=== PATIENT | female | born 1985 | race Caucasian/White ===

== ENCOUNTER 2020-04-22 08:14 | Outpatient (REF) | payer OTHER, SELFPAY ==
[2020-04-22 11:12] LABS: Free T4 (Free Thyroxine) 0.99 ng/dL (0.71-1.85); Thyroid Stimulating Hormone 1.77 uIU/mL (0.32-4.0)
== END 2020-04-22 08:15 | disposition home or self-care (01) ==
LOC: HO.10HDL 08:14
PROVIDERS: Visit Provider Internal Medicine Endocrinology, Diabetes & Metabolism
DX: E03.8 Other specified hypothyroidism (principal)
CPT/HCPCS: 84439; 84443

== ENCOUNTER → 2020-04-30 09:19 | Outpatient (BNVA) | payer OTHER, SELFPAY | PROVIDERS: PCP Internal Medicine; Referring Provider Internal Medicine; Visit Provider Internal Medicine Endocrinology, Diabetes & Metabolism | DX: Z76.89 Persons encountering health services in other specified circumstances (principal) ==

== ENCOUNTER 2020-11-13 15:04 | Outpatient (REF) | payer OTHER, SELFPAY ==
--- NOTE | ~2020-11-13 | MR_ITS ---
EXAMINATION: MR BRAIN WITHOUT AND WITH CONTRAST CLINICAL INFORMATION: 35-year-old undergoing follow-up exam for pituitary adenoma. COMPARISON: 05/31/2018 MRI. TECHNIQUE: Multiplanar, multisequence MRI/sella of the brain was obtained before and after the intravenous administration of 5 mL Gadavist. FINDINGS: Again noted is a somewhat enlarged anterior pituitary lobe measuring 13 mm greatest transverse dimension in the coronal plane stable in appearance with maximum sagittal dimensions of 8 x 10 mm grossly stable in appearance. Some heterogeneous enhancement is noted within the glandular tissue which is similar to the previous study and there is an upward convex margin of the gland which is unchanged. The pituitary infundibulum is midline and enhances normally stable in appearance. There is a normal posterior pituitary bright spot unchanged. Cavernous sinuses enhance normally. No definite mass effect on the optic chiasm or prechiasmatic optic nerves unchanged in appearance. DWI imaging demonstrates no restricted diffusion. Specifically, there is no evidence for recent or acute infarct. The brain is normal in morphology and signal intensity. No intracranial mass lesions, abnormal enhancement, space-occupying process or mass effect are identified throughout the remainder of the brain. The ventricular system and subarachnoid spaces are within normal limits without hydrocephalus stable in appearance. Signal voids are noted in the visualized major intracranial vessels. Nasal septal deviation to the left unchanged in appearance with minor ethmoid sinus mucosal thickening noted. MR/MR head/brain wo/w con IMPRESSION: 1. Stable appearance to the pituitary gland since the previous study with no significant interval change in slightly heterogeneous enhancement. No definite discrete mass lesion is visualized within the gland but is difficult to completely exclude due to heterogeneous enhancement as described above. 2. Remainder of the study is within normal limits.
== END 2020-11-13 15:05 | disposition home or self-care (01) ==
LOC: HO.MRI 15:04
PROVIDERS: Visit Provider Psychiatry & Neurology Neurology
DX: D35.2 Benign neoplasm of pituitary gland (principal)
CPT/HCPCS: 70553; A9585

== ENCOUNTER 2021-02-10 07:45 | Outpatient (REF) | payer OTHER, SELFPAY ==
[2021-02-10 11:25] LABS: MANUAL DIFF FLAG NO
[2021-02-10 11:43] LABS: Basophils Absolute Auto 0.1 X10*3/uL (0.0-0.2); Basophils Percent Auto 1.1 % (0-2); Eosinophils Absolute Auto 0.3 X10*3/uL (0.0-0.4); Eosinophils Percent Auto 4.4 % (0-4); Hematocrit 38.9 % (37-47); Hemoglobin 12.8 g/dl (12.0-16.0); Imm Gran Abs Auto 0.02 X10*3/uL (0.00-0.03); Imm Gran Pct Auto 0.4 % (0.0-0.4); Lymphocytes Absolute Auto 1.4 X10*3/uL (1.2-4.9); Lymphocytes Percent Auto 24.7 % (20-40); Mean Corpuscular HGB Conc 32.9 g/dl (31.0-35.0); Mean Corpuscular Hemoglobin 30.6 pg (27.0-33.0); Mean Corpuscular Volume 93.1 fL (80-98); Monocytes Absolute Auto 0.4 X10*3/uL (0.1-1.2); Monocytes Percent Auto 7.7 % (2-11); Neutrophils Absolute Auto 3.5 X10*3/uL (2.0-8.3); Neutrophils Percent Auto 61.7 % (45-73); Platelet Count 211 X10*3/uL (160-400); Red Blood Count 4.18 X10*6/uL (4.20-5.50); Red Cell Distribution Width 12.5 % (11.0-16.0); White Blood Count 5.6 X10*3/uL (4.8-10.8)
[2021-02-10 11:55] LABS: Alanine Aminotransferase 18 U/L (0-31); Aspartate Amino Transferase 17 U/L (5-31); Cholesterol 177 mg/dL; Glucose Fasting 88 mg/dL (60-99); HDL Cholesterol 66 mg/dL; LDL Cholesterol Calculated 101 mg/dl; Triglycerides 51 mg/dL
[2021-02-10 14:26] LABS: Estimated Average Glucose 94 mg/dL; Hemoglobin A1c % 4.9 %
== END 2021-02-10 07:46 | disposition home or self-care (01) ==
LOC: HO.HMGCLDS 07:45
PROVIDERS: PCP Internal Medicine; Visit Provider Internal Medicine
DX: Z00.01 Encounter for general adult medical examination with abnormal findings (principal); E03.8 Other specified hypothyroidism; E06.3 Autoimmune thyroiditis; E23.7 Disorder of pituitary gland, unspecified; E66.9 Obesity, unspecified
CPT/HCPCS: 36415; 80061; 82947; 83036; 84450; 84460; 85025

== ENCOUNTER 2021-12-02 15:30 | Outpatient (REF) | payer OTHER, SELFPAY ==
--- NOTE | ~2021-12-02 | MR_ITS ---
EXAMINATION: MR BRAIN WITHOUT AND WITH CONTRAST CLINICAL INFORMATION: 36-year-old undergoing followup for pituitary adenoma. COMPARISON: 11/13/2020 MRI. TECHNIQUE: Multiplanar, multisequence MRI of the brain/sella was obtained before and after the intravenous administration of 5 mL Gadavist. FINDINGS: Redemonstrated is a convex upward margin to the dome of the pituitary gland, measuring approximately 7.5 mm in maximum height compared to 8.5 mm on the previous study indicating a slight degree of flattening of the dome. On image 14 of series 9 of the current exam, there is a 4 mm subtle zone of mild hypoenhancement, which is better visualized on the current study and could reflect a small microadenoma. The infundibulum enhances normally and is unchanged in appearance. The cavernous sinuses are symmetric and enhance normally. Normal signal voids in the adjacent ICAs. The optic chiasm, optic tracts and prechiasmatic optic nerves are uncompromised. No focal reduced diffusion is seen to suggest acute or subacute cerebral ischemia. The remainder of the brain is normal in morphology and signal intensity. No mass lesions, abnormal brain parenchymal or leptomeningeal enhancement are seen throughout the remainder of the brain. The ventricular system and subarachnoid spaces are within normal limits without hydrocephalus. Normal signal voids are seen in the visualized major intracranial vessels. Nasal septal deviation to the left and minor mucosal thickening in the ethmoid complex is stable with a sahil bullosa in the right middle turbinate. Osseous marrow signal intensity appears within normal limits. MR/MR head/brain wo/w con IMPRESSION: Slightly diminished total gland height since the previous exam, but now with a slightly more well-defined zone of hypoenhancement measuring 4 mm in the anterior pituitary lobe on the left, which could reflect a small microadenoma. Follow up as per clinical indications.
[2021-12-02 17:06] LABS: Alanine Aminotransferase 15 U/L (0-31); Anion Gap 10 (12-20); Aspartate Amino Transferase 18 U/L (5-31); Blood Urea Nitrogen 22 mg/dL (9-16); Calcium 9.3 mg/dL (8.4-10.2); Carbon Dioxide 23 mmol/L (22-29); Chloride 107 mmol/L (96-108); Cholesterol 206 mg/dL; Estimated Glomerular Filt Rate > 60; Glucose Random 91 mg/dL (60-115); HDL Cholesterol 61 mg/dL; LDL Cholesterol Calculated 125 mg/dl; Potassium 4.3 mmol/L (3.3-5.1); Sodium 136 mmol/L (135-145); Triglycerides 104 mg/dL
[2021-12-02 17:27] LABS: Vitamin D 25-OH Total 23.7 ng/mL (>30)
== END 2021-12-02 15:31 | disposition home or self-care (01) ==
LOC: HO.MRI 15:30
PROVIDERS: PCP Internal Medicine; Visit Provider Psychiatry & Neurology Neurology
DX: D35.2 Benign neoplasm of pituitary gland (principal); G47.00 Insomnia, unspecified
CPT/HCPCS: 36415; 70553; 80048; 80061; 82306; 84146; 84450; 84460; A9585

== ENCOUNTER 2022-03-03 09:29 | Outpatient (REF) | payer OTHER, SELFPAY ==
[2022-03-03 10:34] LABS: MANUAL DIFF FLAG NO
[2022-03-03 10:53] LABS: Basophils Absolute Auto 0.1 X10*3/uL (0.0-0.2); Eosinophils Absolute Auto 0.2 X10*3/uL (0.0-0.4); Eosinophils Percent Auto 2.9 % (0-4); Hematocrit 38.4 % (37.0-47.0); Imm Gran Abs Auto 0.02 X10*3/uL (0.00-0.03); Imm Gran Pct Auto 0.3 % (0.0-0.4); Lymphocytes Absolute Auto 1.7 X10*3/uL (1.2-4.9); Lymphocytes Percent Auto 24.6 % (20-40); Mean Corpuscular HGB Conc 33.9 g/dl (31.0-35.0); Mean Corpuscular Hemoglobin 30.7 pg (27.0-33.0); Mean Corpuscular Volume 90.8 fL (80.0-98.0); Mean Platelet Volume 10.7 fL (9.4-12.3); Monocytes Absolute Auto 0.4 X10*3/uL (0.1-1.2); Monocytes Percent Auto 6.3 % (2-11); Neutrophils Absolute Auto 4.5 x10*3/uL (2.0-8.3); Neutrophils Percent Auto 64.9 % (45-73); Platelet Count 269 X10*3/uL (160-400); Red Blood Count 4.23 X10*6/uL (4.20-5.50); Red Cell Distribution Width 12.7 % (11.0-16.0)
[2022-03-03 11:28] LABS: Alanine Aminotransferase 20 U/L (0-31); Albumin Level 4.7 g/dL (3.5-5.0); Alkaline Phosphatase 55 U/L (39-117); Anion Gap 14 (12-20); Aspartate Amino Transferase 18 U/L (5-31); Bilirubin Total 0.5 mg/dL (0.0-1.0); Blood Urea Nitrogen 14 mg/dL (9-16); Calcium 9.3 mg/dL (8.4-10.2); Carbon Dioxide 23 mmol/L (22-29); Chloride 105 mmol/L (96-108); Estimated Glomerular Filt Rate > 60; Glucose Random 91 mg/dL (60-115); Potassium 4.5 mmol/L (3.3-5.1); Sodium 137 mmol/L (135-145); Total Protein 6.9 g/dL (6.5-8.0)
[2022-03-05 14:02] LABS: Immunoglobulin G Subclass 1 420 mg/dL (382-929); Immunoglobulin G Subclass 2 238 mg/dL (241-700); Immunoglobulin G Subclass 3 73 mg/dL (22-178); Immunoglobulin G Subclass 4 6.7 mg/dL (4-86); Immunoglobulin G Total 705 mg/dL (600-1640)
[2022-03-05 14:47] LABS: Immunoglobulin A 35 mg/dL (47-310); Immunoglobulin M 57 mg/dL (50-300)
[2022-03-05 18:42] LABS: Immunoglobulin E 14 kU/L (<OR=114)
[2022-03-08 23:02] LABS: Tetanus Antitoxiod Antibody 4.22 IU/mL
[2022-03-09 22:32] LABS: Mycoplasma Pneumoniae - IgG 3.53 (<=0.90); Mycoplasma Pneumoniae - IgM 62 U/mL (<770)
== END 2022-03-03 09:30 | disposition home or self-care (01) ==
LOC: HO.10HDL 09:29
PROVIDERS: Visit Provider Allergy & Immunology
DX: T78.40XA Allergy, unspecified, initial encounter (principal)
CPT/HCPCS: 36415; 80053; 82784; 82785; 83520; 85025; 86317; 86738; 86774

== ENCOUNTER 2022-05-13 09:00 | Outpatient (REF) | payer OTHER, SELFPAY ==
[2022-05-13 10:29] LABS: MANUAL DIFF FLAG NO
[2022-05-13 10:31] LABS: Basophils Absolute Auto 0.1 X10*3/uL (0.0-0.2); Basophils Percent Auto 1.4 % (0-2); Eosinophils Absolute Auto 0.2 X10*3/uL (0.0-0.4); Hematocrit 36.6 % (37.0-47.0); Hemoglobin 12.1 g/dl (12.0-16.0); Imm Gran Abs Auto 0.01 X10*3/uL (0.00-0.03); Imm Gran Pct Auto 0.2 % (0.0-0.4); Lymphocytes Absolute Auto 1.4 X10*3/uL (1.2-4.9); Lymphocytes Percent Auto 27.2 % (20-40); Mean Corpuscular HGB Conc 33.1 g/dl (31.0-35.0); Mean Corpuscular Hemoglobin 29.9 pg (27.0-33.0); Mean Corpuscular Volume 90.4 fL (80.0-98.0); Mean Platelet Volume 10.5 fL (9.4-12.3); Monocytes Absolute Auto 0.4 X10*3/uL (0.1-1.2); Monocytes Percent Auto 8.3 % (2-11); Neutrophils Percent Auto 59.9 % (45-73); Platelet Count 215 X10*3/uL (160-400); Red Blood Count 4.05 X10*6/uL (4.20-5.50); Red Cell Distribution Width 12.6 % (11.0-16.0)
[2022-05-13 10:42] LABS: Estimated Average Glucose 91 mg/dL; Hemoglobin A1c % 4.8 %
[2022-05-13 11:33] LABS: Alanine Aminotransferase 14 U/L (0-31); Albumin Level 4.3 g/dL (3.5-5.0); Alkaline Phosphatase 48 U/L (39-117); Anion Gap 9 (12-20); Aspartate Amino Transferase 14 U/L (5-31); Bilirubin Total 0.6 mg/dL (0.0-1.0); Blood Urea Nitrogen 16 mg/dL (9-16); Calcium 9.3 mg/dL (8.4-10.2); Carbon Dioxide 25 mmol/L (22-29); Chloride 104 mmol/L (96-108); Cholesterol 196 mg/dL; Estimated Glomerular Filt Rate > 60; Free T4 (Free Thyroxine) 1.04 ng/dL (0.71-1.85); Glucose Fasting 92 mg/dL (60-99); HDL Cholesterol 63 mg/dL; Insulin 7 uU/mL (2-29); Iron 63 mcg/dL (30-160); LDL Cholesterol Calculated 125 mg/dl; Percent Iron Saturation 21 % (15-50); Potassium 4.4 mmol/L (3.3-5.1); Sodium 134 mmol/L (135-145); Thyroid Stimulating Hormone 2.12 uIU/mL (0.32-4.0); Total Iron Binding Capacity 294 mcg/dL (228-428); Total Protein 6.3 g/dL (6.5-8.0); Triglycerides 44 mg/dL; Unsaturated Iron Binding 231 ug/dL; Vitamin D 25-OH Total 30.8 ng/mL (>30)
[2022-05-13 11:40] LABS: Folate 9.7 ng/mL (> or = 4.0); Vitamin B12 796 pg/mL (200-900)
[2022-05-14 23:44] LABS: Triiodothyronine T3 Free 3.3 pg/mL (2.3-4.2)
[2022-05-15 04:59] LABS: Thyroglobulin Antibodies <1 IU/mL (< or = 1); Thyroid Peroxidase Antibodies 353 IU/mL (<9)
[2022-05-15 14:08] LABS: Ceruloplasmin 31 mg/dL (18-53); Transferrin 252 mg/dL (188-341)
[2022-05-18 16:38] LABS: Iodine, Serum/Plasma 61 mcg/L (52-109)
[2022-05-19 12:37] LABS: Triiodothyronine T3 Reverse 14 ng/dL (8-25)
[2022-05-19 17:12] LABS: Zinc 83 mcg/dL (60-130)
[2022-05-20 06:13] LABS: Copper, serum 135 mcg/dL (70-175); Selenium, Serum 105 mcg/L (63-160)
== END 2022-05-13 09:01 | disposition home or self-care (01) ==
LOC: HO.10HDL 09:00
PROVIDERS: Visit Provider Family Medicine
DX: E03.9 Hypothyroidism, unspecified (principal); J82.83 Eosinophilic asthma; N94.3 Premenstrual tension syndrome; E66.9 Obesity, unspecified; R20.2 Paresthesia of skin
CPT/HCPCS: 36415; 80053; 80061; 82306; 82390; 82525; 82607; 82746; 83036; 83525; 83540; 83789; 84255; 84439; 84443; 84466; 84481; 84482; 84630; 85025; 86376; 86800

== ENCOUNTER 2022-10-13 08:32 | Outpatient (AMB) | payer OTHER, SELFPAY ==
--- NOTE | 2022-10-13 08:37 | MHC.PC.OV ---
Vital Signs 10/13/22 08:38 Height 5 ft 5 in BP 118/64 Blood Pressure Location Lt brachial Position Sitting Pulse 58 Pulse Source Pulse Oximeter Pulse Oximetry (%) 97 Oxygen Delivery Method Room Air Intake Visit Reasons: Annual PE Intake Note: Pe is here today for her PE Is last menstrual period known: Yes Last menstrual period: 09/25/22 Allergies No Known Allergies [No Known Allergies*] Allergy (Verified 10/13/22 09:02) Dust and Mold Allergy (Unknown, Uncoded 10/13/22 09:02) Unknown Medication List - Last Reconciled 10/13/22 by Pat Sevilla MD levothyroxine 50 mcg PO DAILY 90 days sertraline 50 mg PO QAM Tobacco use date assessed: 10/13/22 HPI Annual PE HPI Details 37-year-old lady here today for her physical exam. She has Gissell's thyroiditis with subsequent hypothyroidism currently stable controlled on current dose of levothyroxine at 50 mcg daily in the morning and was prescribed sertraline by her neurologist , Dr. Lucas, for anxiety disorder, who is also following her for her pituitary micro adenoma. She has been feeling well, with no complaints at present time. [facility] Medical History (Updated 02/16/23 @ 01:28 by Pat Sevilla MD) Anxiety disorder Fatigue H/O reactive hypoglycemia Gissell's thyroiditis History of vitamin D deficiency Hypothyroidism Intermittent palpitations Obesity (BMI 30.0-34.9) Pituitary lesion Urge incontinence Urinary urgency Vitamin D deficiency Surgical History No pertinent past surgical history Family History Father Substance use disorder Mother No problems noted. Paternal Grandmother Diabetes mellitus Pituitary microadenoma Mental health disorder Paternal Aunt Mental health disorder Social History Housing: Apartment Alcohol intake: never Patient Tobacco Use Status: Never used Tobacco e-Cigarette/Vaping Use: Never Used Second Hand Smoke Exposure: No service: No Current occupational status: employed Cognitive needs: No Hearing needs: No Vision needs: No Female Reproductive History Menstrual Date of last menstrual period: 09/25/22 Questionnaire PHQ-9 Over the last 2 weeks, how often have you been bothered by any of the following problems? 1. Little interest or pleasure in doing things: not at all 2. Feeling down, depressed, or hopeless: not at all 3. Trouble falling or staying asleep, or sleeping too much: not at all 4. Feeling tired or having little energy: not at all 5. Poor appetite or overeating: not at all 6. Feeling bad about yourself - or that you are a failure or have let yourself or your family down: not at all 7. Trouble concentrating on things, such as reading the newspaper or watching television: not at all 8. Moving or speaking so slowly that other people could have noticed. Or the opposite - being so fidgety or restless that you have been moving around a lot more than usual: not at all 9. Thoughts that you would be better off or of hurting yourself in some way: not at all Total score: 0 Depression Screening Interpretation: Negative 20804 - PHQ-9 Billing: Yes Source: Developed by Drs. Kike Gannon, Cecilia Ronquillo, Christian House and colleagues, with an educational yakelin from [employer]. Thrive Questionnaire Declines Thrive assessment: No Date Thrive assessed: 10/13/22 I am a: Patient What is your living situation today?: I have a steady place to live Within the past 12 months, did the food you bought not last and you didn't have the money to get more?: Never true Within the past 12 months, did you worry whether your food would run out before you got money to buy more?: Never true Do you have trouble paying for medicines?: No Do you have trouble getting transportation to medical appointments?: No Do you have trouble paying your heating and electricity bill?: No Do you have trouble taking care of your child, family member or friend?: No Do you have trouble with day-to-day activities such as bathing, preparing meals, shopping, managing finances, etc.?: No Are you currently unemployed and looking for a job?: No Are you interested in more education?: No AUDIT C Alcohol Use Questionnaire (AUDIT-C) 1. How often do you have a drink containing alcohol?: Monthly or less 2. How many drinks containing alcohol do you have on a typical day when you are drinking?: 1 or 2 3. How often do you have six or more drinks on one occasion?: Never Total Score: 1 ARY-7 AMB Questionnaire ARY-7 Date ARY - 7 assessed: 10/13/22 Feeling nervous, anxious, or on edge: 0 = Not at all Not being able to stop or control worryin = Not at all Worrying too much about different things: 0 = Not at all Trouble relaxin = Not at all Being so restless that it is hard to sit still: 0 = Not at all Becoming easily annoyed or irritable: 0 = Not at all Feeling afraid as if something awful might happen: 0 = Not at all Total ARY-7 score (0-4 normal; 5-9 mild; 10-14 moderate; 15-21 severe): 0 Source: Developed by Drs. Kike Gannon, Cecilia Ronquillo, [employer] and colleagues, with an educational yakelin from [employer]. ARY-7 Assessment Billing ARY-7 Assessment Tool: ARY-7 Assessment 21147 Review of Systems Const Denies body aches, Denies fever(s), Denies headache(s), Denies malaise and Denies weakness Eyes Reports no additional complaints ENT Denies dizziness, Denies headache(s), Denies nasal congestion, Denies nasal discharge and Denies sore throat Card Denies chest pain, Denies lightheadedness, Denies palpitations and Denies dyspnea Resp Denies chest congestion, Denies cough and Denies dyspnea GI Denies abdominal pain, Denies change in bowel habits and Denies heartburn Denies hematuria, Denies nipple discharge, Denies dysuria, Reports urinary incontinence, Denies urinary hesitancy, Reports urinary urgency and Denies vaginal discharge Musc Reports no additional complaints Skin/Breast Denies lesions, Denies nipple discharge and Denies rash Neuro Denies dizziness, Denies headache(s) and Denies weakness Psych Reports as per HPI Endo Denies polydipsia, Denies polyuria and Denies palpitations Homer/Lymph Reports no additional complaints Aller/Immun Reports no additional complaints Physical exam (Primary Care) Vital Signs: Last Vital Signs Pulse 58 10/13/22 08:38 BP 118/64 10/13/22 08:38 Pulse Ox 97 05/03/23 08:38 Oxygen Delivery Method Room Air 10/13/22 08:38 BMI Assessment/Plan discussion: High BMI High, discussed plan: lifestyle, weight reduction and dietary Tobacco/Smoking Status: Tobacco use Status Tobacco use date assessed 10/13/22 10/13/22 08:40 Patient Tobacco Use Status Never used Tobacco 10/13/22 08:40 e-Cigarette/Vaping Use Never Used 10/13/22 08:40 PHQ-9: PHQ-9 Score PHQ-9: Total score 0 10/13/22 09:42 Depression Screening Interpretation: Negative Thrive Assessment: Date of Thrive Assessment Date Thrive assessed 10/13/22 10/13/22 08:53 Const General: cooperative, comfortable and no acute distress Nutritional Appearance: obese Orientation/consciousness: patient oriented x3 Limitations: no limitations HENMT Head: Yes normocephalic and Yes atraumatic Ears: hearing grossly normal bilaterally, TM's normal bilaterally and EAC's normal General nose exam: Normal external nose present and No nasal discharge present Face and sinus: Yes face symmetric Mouth: Normal oral and palatal mucosa present, oropharynx normal and moist mucous membranes Teeth and gingiva: dentition normal and gingiva normal Throat: Yes posterior oropharynx normal Eyes General: appearance normal, both eyes and all related structures Neck Other: Supple, no lymphadenopathy, thyroid gland nonpalpable nontender to palpation Chest Chest palpation & inspection: normal inspection of the chest Breast/axilla palpation: normal palpation of the breasts Resp Effort & Inspection: normal respiratory effort and able to speak in complete sentences Auscultation: clear to auscultation bilaterally Cardio Other: S1-S2 present, bradycardic EKG done today showed sinus bradycardia with rate of 59 beats per minute with no acute ST-T changes seen GI Inspection: Yes obesity Palpation (GI): Soft to palpation, nontender, no guarding and no masses Auscultation: normal bowel sounds General: Yes no CVA tenderness and Yes deferred (Currently sees her own OBGYN) Back/Spine/Pelvis Back: no CVA tenderness and No back tenderness Skin General skin exam: no rashes or lesions noted Neuro General: patient oriented x3, gait normal, tone normal, moves all extremities, no focal motor deficits and CN's II-XI intact bilaterally Gait exam (Neuro): Normal gait present Extrem General: Yes full ROM, Yes no joint enlargement, Yes no pedal edema and Yes normal gait Psych Appearance: grossly normal and well kempt Mental Status: mental status grossly normal Speech and movement: Normal speech and movement present and Clear speech present Affect: normal affect Attitude: cooperative Thought process: Normal thought process present Thought content: Normal thought content present Assessment and Plan Assessment & Plan (1) Annual visit for general adult medical examination with abnormal findings: Code(s): Z00.01 - Encounter for general adult medical examination with abnormal findings Plan: Will check appropriate labs. Recommended dental visit every 6 months and regular eye exams, at least every 2 years. Take adequate calcium in diet and vitamin-D 3 at 2000 IU per cap once a day, in addition to weight-bearing exercises to help maintain good muscle tone and weight control. Instructed to do self-breast exam, and recommended to get yearly mammogram, starting at age 40. Reminded to get her yearly flu vaccine, and COVID booster. Goes to her own OBGYN for routine Pap and pelvic exam (2) Gissell's thyroiditis: Code(s): E06.3 - Autoimmune thyroiditis (3) Obesity (BMI 30.0-34.9): Code(s): E66.9 - Obesity, unspecified Plan: Discussed need to increase activity and wt reduction. Recommended focusing on improving your health instead of dieting. : Eat Mediterranean diet, limit foods high in fat, sugar, and calories, eat slowly, pay attention to portion sizes, plan your meals ahead of time, start regular physical activity 150 minutes of moderate intensity exercise or 90 minutes/week of vigorous exercise and increase water intake. (4) Hypothyroidism: Code(s): E03.9 - Hypothyroidism, unspecified Qualifiers: Hypothyroidism type: due to Gissell's thyroiditis Qualified Code(s): E03.8 - Other specified hypothyroidism; E06.3 - Autoimmune thyroiditis (5) Fatigue: Code(s): R53.83 - Other fatigue (6) History of vitamin D deficiency: Code(s): Z86.39 - Personal history of other endocrine, nutritional and metabolic disease (7) Urge incontinence: Code(s): N39.41 - Urge incontinence Plan: Urology consult or (8) Intermittent palpitations: Code(s): R00.2 - Palpitations Plan: EKG done today showed presence of sinus bradycardia with no acute ST-T changes seen (9) Pituitary lesion: Comment: Questionable micro adenoma, no intervention required per endocrine Code(s): E23.7 - Disorder of pituitary gland, unspecified Plan: Followed by Neurology, no intervention recommended (10) Anxiety disorder: Code(s): F41.9 - Anxiety disorder, unspecified Plan: Was started on sertraline by her neurologist at 50 mg daily, has been helping control anxiety attacks. Code(s): F41.9 - Anxiety disorder, unspecified Plan Ordered fast fasting labs to check for lipid panel, TSH and free T4, basic metabolic panel, thyroid peroxidase antibodies in a vitamin-D /B12/folic acid level, and CBC Orders: Orders Lipid Panel 10/13/22 E06.3 - Autoimmune thyroiditis, E66.9 - Obesity, unspecified, E03.9 - Hypothyroidism, unspecified, Z00.01 - Encounter for general adult medical examination with abnormal findings, R39.15 - Urgency of urination Thyroid Stimulating Hormone 10/13/22 E06.3 - Autoimmune thyroiditis, E66.9 - Obesity, unspecified, E03.9 - Hypothyroidism, unspecified, Z00.01 - Encounter for general adult medical examination with abnormal findings, R39.15 - Urgency of urination Free T4 (Free Thyroxine) 10/13/22 E03.9 - Hypothyroidism, unspecified, E06.3 - Autoimmune thyroiditis, E66.9 - Obesity, unspecified, Z00.01 - Encounter for general adult medical examination with abnormal findings, R39.15 - Urgency of urination Basic Metabolic Panel Fasting 10/13/22 E06.3 - Autoimmune thyroiditis, E66.9 - Obesity, unspecified, E03.9 - Hypothyroidism, unspecified, Z00.01 - Encounter for general adult medical examination with abnormal findings, R39.15 - Urgency of urination Thyroid Peroxidase Antibodies 10/13/22 E06.3 - Autoimmune thyroiditis, E66.9 - Obesity, unspecified, E03.9 - Hypothyroidism, unspecified, R53.83 - Other fatigue, Z86.39 - Personal history of other endocrine, nutritional and metabolic disease Vitamin D 25-OH Total 10/13/22 E06.3 - Autoimmune thyroiditis, E66.9 - Obesity, unspecified, E03.9 - Hypothyroidism, unspecified, R53.83 - Other fatigue, Z86.39 - Personal history of other endocrine, nutritional and metabolic disease Vitamin B12 and Folate 10/13/22 E06.3 - Autoimmune thyroiditis, E66.9 - Obesity, unspecified, E03.9 - Hypothyroidism, unspecified, R53.83 - Other fatigue, Z86.39 - Personal history of other endocrine, nutritional and metabolic disease Complete Blood Count Auto Diff 10/13/22 R53.83 - Other fatigue, R00.2 - Palpitations, E03.9 - Hypothyroidism, unspecified AMB EKG-In Office 10/13/22 R00.2 - Palpitations Referrals Urology Referral N39.41 - Urge incontinence Coding Level of Care Code Est Pt Prev Care 18-39y(24860) Diagnoses Annual visit for general adult medical examination with abnormal findings Z00.01 Gissell's thyroiditis E06.3 Obesity (BMI 30.0-34.9) E66.9 Hypothyroidism E03.8; E06.3 Hypothyroidism type: due to Gissell's thyroiditis Fatigue R53.83 History of vitamin D deficiency Z86.39 Urge incontinence N39.41 Intermittent palpitations R00.2 Pituitary lesion E23.7 Anxiety disorder F41.9 Additional Codes ARY-7 Assessment Billing - ARY-7 Assessment Tool: ARY-7 Assessment [id number] ([id number])
[2022-10-13 08:38] VITALS: BP 118/64; PULSE 58; O2SAT 97
== END 2022-10-13 12:52 | disposition home or self-care (01) ==
LOC: HO.HMGC 08:32
PROVIDERS: PCP Internal Medicine; Visit Provider Internal Medicine
DX: Z00.00 Encounter for general adult medical examination without abnormal findings (principal); E06.3 Autoimmune thyroiditis; E03.8 Other specified hypothyroidism; Z86.39 Personal history of other endocrine, nutritional and metabolic disease; E23.7 Disorder of pituitary gland, unspecified; F41.9 Anxiety disorder, unspecified; E66.9 Obesity, unspecified; R53.83 Other fatigue; N39.41 Urge incontinence; R00.2 Palpitations
CPT/HCPCS: 99395

== ENCOUNTER 2022-12-08 07:04 | Outpatient (REF) | payer OTHER, SELFPAY ==
[2022-12-08 11:16] LABS: MANUAL DIFF FLAG NO
[2022-12-08 11:20] LABS: Hematocrit 39.9 % (37.0-47.0); Hemoglobin 13.1 g/dl (12.0-16.0); Mean Corpuscular HGB Conc 32.8 g/dl (31.0-35.0); Mean Corpuscular Hemoglobin 30.3 pg (27.0-33.0); Mean Corpuscular Volume 92.1 fL (80.0-98.0); Red Blood Count 4.33 X10*6/uL (4.20-5.50); White Blood Count 5.3 X10*3/uL (4.8-10.8)
[2022-12-08 11:21] LABS: Basophils Absolute Auto 0.1 X10*3/uL (0.0-0.2); Basophils Percent Auto 1.3 % (0-2); Eosinophils Absolute Auto 0.2 X10*3/uL (0.0-0.4); Eosinophils Percent Auto 3.8 % (0-4); Imm Gran Abs Auto 0.01 X10*3/uL (0.00-0.03); Imm Gran Pct Auto 0.2 % (0.0-0.4); Lymphocytes Absolute Auto 1.5 X10*3/uL (1.2-4.9); Lymphocytes Percent Auto 28.1 % (20-40); Mean Platelet Volume 10.8 fL (9.4-12.3); Monocytes Absolute Auto 0.4 X10*3/uL (0.1-1.2); Monocytes Percent Auto 8.1 % (2-11); Neutrophils Absolute Auto 3.1 x10*3/uL (2.0-8.3); Neutrophils Percent Auto 58.5 % (45-73); Platelet Count 198 X10*3/uL (160-400); Red Cell Distribution Width 12.5 % (11.0-16.0)
[2022-12-08 11:47] LABS: Anion Gap 7 (12-20); Blood Urea Nitrogen 21 mg/dL (9-16); Calcium 9.5 mg/dL (8.4-10.2); Carbon Dioxide 22 mmol/L (22-29); Chloride 108 mmol/L (96-108); Cholesterol 180 mg/dL; Estimated Glomerular Filt Rate > 60; Glucose Fasting 98 mg/dL (60-99); HDL Cholesterol 51 mg/dL; LDL Cholesterol Calculated 113 mg/dl; Potassium 4.3 mmol/L (3.3-5.1); Sodium 133 mmol/L (135-145); Triglycerides 80 mg/dL
[2022-12-08 12:10] LABS: Free T4 (Free Thyroxine) 0.91 ng/dL (0.71-1.85); Thyroid Stimulating Hormone 4.58 uIU/mL (0.32-4.0); Vitamin D 25-OH Total 45.3 ng/mL (>30)
[2022-12-08 12:30] LABS: Folate 9.8 ng/mL (> or = 4.0); Vitamin B12 812 pg/mL (200-900)
[2022-12-10 11:08] LABS: Thyroid Peroxidase Antibodies 278 IU/mL (<9)
== END 2022-12-08 07:05 | disposition home or self-care (01) ==
LOC: HO.HMGCLDS 07:04
PROVIDERS: PCP Internal Medicine; Visit Provider Internal Medicine
DX: Z00.01 Encounter for general adult medical examination with abnormal findings (principal); E06.3 Autoimmune thyroiditis; E66.9 Obesity, unspecified; E03.9 Hypothyroidism, unspecified; R53.83 Other fatigue; R39.15 Urgency of urination; R00.2 Palpitations; E55.9 Vitamin D deficiency, unspecified
CPT/HCPCS: 36415; 80048; 80061; 82306; 82607; 82746; 84439; 84443; 85025; 86376

== ENCOUNTER 2023-05-04 13:37 | Outpatient (AMB) | payer OTHER, SELFPAY ==
--- NOTE | 2023-05-04 13:40 | MHC.OFFWIV ---
Intake Vital Signs 05/04/23 13:52 Height 5 ft 5 in BP 130/70 Blood Pressure Location Rt brachial Position Sitting Pulse 82 Pulse Source Pulse Oximeter Temp 96.2 F L Temp Source Temporal Artery Scan Pulse Oximetry (%) 98 Oxygen Delivery Method Room Air Intake Visit Reasons: EST/left foot pain (lobby) Intake Note: Pt is here c/o left foot pain Patient Tobacco Use Status: Never used Tobacco Allergies No Known Allergies [No Known Allergies*] Allergy (Verified 05/04/23 13:48) Dust and Mold Allergy (Unknown, Uncoded 05/04/23 13:48) Unknown HPI HPI Comments History of Present Illness Details 1400 38-year-old female presents with pain to top of left foot status post soccer injury she reports somebody ran into her, and since then has been having pain. Reports pain is worse with movement better at rest. Denies numbness or tingling. No fevers or chills. Reports multiple injuries that foot as a child. Physical examination benign other than slight tenderness to palpation to the top of L foot overlying the 3rd and 4th Metatarsals. Ambulating with steady gait. Concerns for contusion. Unlikely sprain, strain, fracture dislocation. No signs of neurovascular compromise or threat to limb plan x-ray. Will send naproxen for pain control. Educated patient on diagnosis and treatment plan, answered all question, patient verbalizes understanding. At this time patient will be discharged home, advised to return with new or worsening symptoms. Educated on worrisome signs and symptoms and when to return. At this time I feel comfortable discharge home. [facility] Medical History Anxiety disorder Intermittent palpitations Urge incontinence Fatigue Urinary urgency History of vitamin D deficiency Gissell's thyroiditis Obesity (BMI 30.0-34.9) H/O reactive hypoglycemia Pituitary lesion Vitamin D deficiency Hypothyroidism Surgical History No pertinent past surgical history Family History Father Substance use disorder Mother No problems noted. Paternal Grandmother Diabetes mellitus Pituitary microadenoma Mental health disorder Paternal Aunt Mental health disorder Housing: Apartment Alcohol intake: never Patient Tobacco Use Status: Never used Tobacco e-Cigarette/Vaping Use: Never Used Second Hand Smoke Exposure: No service: No Current occupational status: employed Cognitive needs: No Hearing needs: No Vision needs: No Review of Systems Const Details: Constitutional : No Weight loss, No Fever, No Chills, No Fatigue, No Malaise ENT/Mouth : No sore throat, No Rhinorrhea Eyes: No Eye Pain, No Swelling, No Redness Cardiovascular : No Chest Pain, No SOB, No Dyspnea on Exertion, No Orthopnea, No Edema, No Palpitations Respiratory : No Cough, No Sputum, No Wheezing Gastrointestinal : No Nausea, No Vomiting, No Diarrhea, No Constipation, No abdominal Pain, No Hematochezia, No Melena Genitourinary : No Dysuria, No Urinary Frequency, No Hematuria, Musculoskeletal : + joint pain, No Myalgias, + Joint Swelling Skin : No Skin Lesions, No rash Neuro : No Weakness, No Numbness, No Dizziness, No Headache Psych : No Anxiety/Panic, No Depression All other systems reviewed and are negative All systems reviewed & are unremarkable except as noted in HPI and below Physical Exam Vital Signs: Last Vital Signs Temp 96.2 F L 05/04/23 13:52 Pulse 82 05/04/23 13:52 BP 130/70 05/04/23 13:52 Pulse Ox 98 05/04/23 13:52 Oxygen Delivery Method Room Air 05/04/23 13:52 Vital signs stable Appearance: Alert.? Oriented X3.? No acute distress.? Head: Normocephalic, atraumatic, no step-offs or deformities Eyes: Pupils equal, round and reactive to light.? Neck: Normal inspection.? Neck supple.? CVS: Normal heart rate and rhythm.? Pulses normal.? Respiratory: No respiratory distress.? Breath sounds normal.? Abdomen: Soft and nontender.? Skin: Skin warm and dry.? Normal skin color.? Normal skin turgor.? Extremities: No lower extremity edema.? No calf ttp. 5/5 strength to bilateral upper and lower extremities +slight tenderness to palpation to the top of foot overlying the 3rd and 4th Metatarsals. Ambulating with steady gait. Neuro: Oriented X 3.? No motor deficit.? No sensory deficit. CN 2-12 intact Assessment & Plan Assessment & Plan (1) Left foot pain: Code(s): M79.672 - Pain in left foot Plan Take your medications as prescribed. If you were prescribed antibiotics today, it is important that you take your medication to their entirety, do not skip any doses, do not finish them early. Follow-up with your primary care provider this week. Return to the emergency department with new or worsening symptoms. Such as fevers, chills, chest pain, shortness of breath, nausea, vomiting, dizziness, headache, vision changes, lethargy In case of emergency call 911 Orders: Orders XR foot LT 2V Today M79.672 - Pain in left foot Referrals Orthopedics Referral M79.672 - Pain in left foot Medications: New naproxen 500 mg PO BID PRN 14 tabs 0RF pain Coding Level of Care Code Est Pt Level 3 (37781) Diagnoses Left foot pain M79.672
[2023-05-04 13:52] VITALS: BP 130/70; PULSE 82; TEMP 35.7; O2SAT 98
== END 2023-05-04 14:46 | disposition home or self-care (01) ==
PROVIDERS: PCP Internal Medicine; Visit Provider Physician Assistant
DX: M79.672 Pain in left foot (principal)
CPT/HCPCS: 99213

== ENCOUNTER 2023-05-04 13:56 | Outpatient (REF) | payer OTHER, SELFPAY ==
--- NOTE | ~2023-05-04 | XR_ITS ---
EXAMINATION: XR FOOT, LEFT CLINICAL INFORMATION: Left-sided flank pain COMPARISON: None available. TECHNIQUE: AP, lateral, and oblique views of the left foot. FINDINGS: There does appear to be mild lateral soft tissue swelling adjacent to the fifth MTP joint but no fracture, dislocation or destructive process. XR/XR foot LT 2V IMPRESSION: Lateral soft tissue swelling. No fracture seen.
== END 2023-05-04 13:57 | disposition home or self-care (01) ==
LOC: HO.HMGCX 13:56
PROVIDERS: PCP Internal Medicine; Visit Provider Physician Assistant
DX: M79.672 Pain in left foot (principal)
CPT/HCPCS: 73620

== ENCOUNTER 2023-10-28 08:03 | Outpatient (REF) | payer OTHER, SELFPAY ==
[2023-10-28 11:24] LABS: Free T4 (Free Thyroxine) 0.93 ng/dL (0.71-1.85); Thyroid Stimulating Hormone 3.01 uIU/mL (0.32-4.0)
[2023-10-31 13:49] LABS: Thyroid Peroxidase Antibodies 425 IU/mL (<9)
== END 2023-10-28 08:04 | disposition home or self-care (01) ==
LOC: HO.HMGCLDS 08:03
PROVIDERS: PCP Internal Medicine; Visit Provider Internal Medicine
DX: E03.8 Other specified hypothyroidism (principal); E06.3 Autoimmune thyroiditis
CPT/HCPCS: 36415; 84439; 84443; 86376

== ENCOUNTER 2024-01-03 13:37 | Outpatient (AMB) | payer OTHER, SELFPAY ==
--- NOTE | 2024-01-03 13:45 | MHC.PC.OV ---
Vital Signs 01/03/24 13:46 Height 5 ft 5 in Weight 190 lb BMI 31.6 BP 100/70 Blood Pressure Location Rt brachial Position Sitting Pulse 61 Pulse Source Pulse Oximeter Pulse Oximetry (%) 98 Oxygen Delivery Method Room Air Intake Visit Reasons: follow-up (medication) Intake Note: Pt is here today for medication f/u Allergies No Known Allergies [No Known Allergies*] Allergy (Verified 01/03/24 13:58) Dust and Mold Allergy (Unknown, Uncoded 01/03/24 13:58) Unknown Medication List - Last Reconciled 01/03/24 by Pat Sevilla MD levothyroxine 50 mcg PO DAILY 90 days sertraline 50 mg PO QAM Tobacco use date assessed: 01/03/24 Dental Screening Dental Screen Date: 01/03/24 Did you have a dental visit in the last 12 months?: Yes Did you have a dental problem in the last 6 months where you did not have access to dental care?: No Was dental information given to patient?: Patient has dentist HPI follow-up (medication) HPI Details 38-year-old lady with 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 She has been doing well on present medications, has no complaints at present time. Would like a referral however to a flame cutting supervisor for her routine skin cancer screening. [facility] Medical History Anxiety disorder Intermittent palpitations Urge incontinence Fatigue Urinary urgency History of vitamin D deficiency Gissell's thyroiditis Obesity (BMI 30.0-34.9) H/O reactive hypoglycemia Pituitary lesion Vitamin D deficiency Hypothyroidism Surgical History No pertinent past surgical history Family History Father Substance use disorder Mother No problems noted. Paternal Grandmother Diabetes mellitus Pituitary microadenoma Mental health disorder Paternal Aunt Mental health disorder Social History Housing: Apartment Alcohol intake: never Patient Tobacco Use Status: Never used Tobacco e-Cigarette/Vaping Use: Never Used Second Hand Smoke Exposure: No service: No Current occupational status: employed Cognitive needs: No Hearing needs: No Vision needs: No Questionnaire PHQ-9 Over the last 2 weeks, how often have you been bothered by any of the following problems? 1. Little interest or pleasure in doing things: not at all 2. Feeling down, depressed, or hopeless: not at all 3. Trouble falling or staying asleep, or sleeping too much: not at all 4. Feeling tired or having little energy: not at all 5. Poor appetite or overeating: not at all 6. Feeling bad about yourself - or that you are a failure or have let yourself or your family down: not at all 7. Trouble concentrating on things, such as reading the newspaper or watching television: not at all 8. Moving or speaking so slowly that other people could have noticed. Or the opposite - being so fidgety or restless that you have been moving around a lot more than usual: not at all 9. Thoughts that you would be better off or of hurting yourself in some way: not at all Total score: 0 Depression Screening Interpretation: Negative Depression Screening Done: Yes 24948 - PHQ-9 Billing: Yes Source: Developed by Drs. Kike Gannon, Cecilia Ronquillo, Christian House and colleagues, with an educational yakelin from [employer]. Thrive Questionnaire Date Thrive assessed: 01/03/24 I am a: Patient What is your living situation today?: I have a steady place to live Within the past 12 months, did the food you bought not last and you didn't have the money to get more?: Never true Within the past 12 months, did you worry whether your food would run out before you got money to buy more?: Never true Do you have trouble paying for medicines?: No Do you have trouble getting transportation to medical appointments?: No Do you have trouble paying your heating and electricity bill?: No Do you have trouble taking care of your child, family member or friend?: No Do you have trouble with day-to-day activities such as bathing, preparing meals, shopping, managing finances, etc.?: No Are you currently unemployed and looking for a job?: No Are you interested in more education?: No Please select the resources that you would like help with: Housing/[facility] Currently or been in a relationship where the following occur: No concerns reported THRIVE Score: 0 AUDIT C Alcohol Use Questionnaire (AUDIT-C) 1. How often do you have a drink containing alcohol?: Never Total Score: 0 ARY-7 AMB Questionnaire ARY-7 Date ARY - 7 assessed: 01/03/24 Feeling nervous, anxious, or on edge: 0 = Not at all Not being able to stop or control worryin = Not at all Worrying too much about different things: 0 = Not at all Trouble relaxin = Not at all Being so restless that it is hard to sit still: 0 = Not at all Becoming easily annoyed or irritable: 0 = Not at all Feeling afraid as if something awful might happen: 0 = Not at all Total ARY-7 score (0-4 normal; 5-9 mild; 10-14 moderate; 15-21 severe): 0 Source: Developed by Drs. Kike Gannon, Cecilia Ronquillo, Christian [facility] and colleagues, with an educational yakelin from [employer]. ARY-7 Assessment Billing ARY-7 Assessment Tool: ARY-7 Assessment 64167 Review of Systems Const Denies body aches, Denies headache(s) and Denies malaise Eyes Reports no additional complaints ENT Denies dizziness, Denies headache(s), Denies nasal congestion and Denies nasal discharge Card Denies chest pain, Denies lightheadedness, Denies palpitations and Denies dyspnea Resp Denies chest congestion, Denies cough and Denies dyspnea GI Denies abdominal pain, Denies change in bowel habits and Denies heartburn Denies dysuria, Denies urinary hesitancy and Reports urinary urgency Musc Reports no additional complaints Skin/Breast Denies lesions and Denies rash Neuro Denies dizziness and Denies headache(s) Psych Reports as per HPI Endo Denies polydipsia, Denies polyuria and Denies palpitations Homer/Lymph Reports no additional complaints Aller/Immun Reports no additional complaints Physical exam (Primary Care) Vital Signs: Last Vital Signs Pulse 61 01/03/24 13:46 BP 100/70 01/03/24 13:46 Pulse Ox 98 01/03/24 13:46 Oxygen Delivery Method Room Air 01/03/24 13:46 BMI result Body Mass Index 31.6 BMI Assessment/Plan discussion: High BMI High, discussed plan: lifestyle, weight reduction and dietary Tobacco/Smoking Status: Tobacco use Status Tobacco use date assessed 01/03/24 01/03/24 13:50 Patient Tobacco Use Status Never used Tobacco 01/03/24 13:50 e-Cigarette/Vaping Use Never Used 01/03/24 13:50 PHQ-9: PHQ-9 Score PHQ-9: Total score 0 01/03/24 14:11 Depression Screening Interpretation: Negative Thrive Assessment: Date of Thrive Assessment Date Thrive assessed 01/03/24 01/03/24 13:50 Currently or been in a relationship where the following occur: No concerns reported Const General: cooperative, comfortable and no acute distress Nutritional Appearance: obese Orientation/consciousness: patient oriented x3 HENMT Head: Yes normocephalic Ears: hearing grossly normal bilaterally, TM's normal bilaterally and EAC's normal General nose exam: Normal external nose present Face and sinus: Yes face symmetric Mouth: Normal oral and palatal mucosa present, oropharynx normal and moist mucous membranes Eyes General: appearance normal, both eyes and all related structures Neck Other: Supple, no lymphadenopathy, thyroid gland nonpalpable nontender to palpation Resp Effort & Inspection: normal respiratory effort and able to speak in complete sentences Auscultation: clear to auscultation bilaterally Cardio Other: S1-S2 present regular rate and rhythm GI Inspection: Yes obesity Palpation (GI): Soft to palpation, nontender, no guarding and no masses Auscultation: normal bowel sounds General: Yes deferred (Currently sees her own OBGYN) Back/Spine/Pelvis Back: No back tenderness Skin General skin exam: no rashes or lesions noted Neuro General: patient oriented x3, gait normal, tone normal, moves all extremities, no focal motor deficits and CN's II-XI intact bilaterally Gait exam (Neuro): Normal gait present Extrem General: Yes full ROM, Yes no joint enlargement, Yes no pedal edema and Yes normal gait Psych Appearance: grossly normal and well kempt Mental Status: mental status grossly normal Speech and movement: Normal speech and movement present and Clear speech present Affect: normal affect Attitude: cooperative Thought process: Normal thought process present Thought content: Normal thought content present Results Reviewed Results Reviewed: Laboratory Tests 10/28/23 08:19 TSH 3.01 Free T4 0.93 Assessment and Plan Assessment & Plan (1) Screening for Malignant Neoplasm of Skin: Code(s): Z12.83 - Encounter for screening for malignant neoplasm of skin Plan: Referred to dermatology for routine skin cancer screening (2) Anxiety disorder: Code(s): F41.9 - Anxiety disorder, unspecified Qualifiers: Anxiety disorder type: generalized anxiety disorder Qualified Code(s): F41.1 - Generalized anxiety disorder Plan: Continued on sertraline 50 mg daily (3) Gissell's thyroiditis: Code(s): E06.3 - Autoimmune thyroiditis Plan: Continued on levothyroxine 50 mcg once a day, latest thyroid levels are within normal limits (4) Hypothyroidism: Code(s): E03.9 - Hypothyroidism, unspecified Qualifiers: Hypothyroidism type: due to Gissell's thyroiditis Qualified Code(s): E03.8 - Other specified hypothyroidism; E06.3 - Autoimmune thyroiditis Plan: Continued on levothyroxine 50 mcg once a day, latest thyroid levels are within normal limits Orders: Referrals Dermatology Referral Z. - Encounter for screening for malignant neoplasm of skin Coding Level of Care Code Est Pt Level 4 (36023) Diagnoses Screening for Malignant Neoplasm of Skin Z12.83 Generalized anxiety disorder F41.1 Anxiety disorder type: generalized anxiety disorder Gissell's thyroiditis E06.3 Hypothyroidism due to Gissell's thyroiditis E03.8; E06.3 Hypothyroidism type: due to Gissell's thyroiditis Additional Codes ARY-7 Assessment Billing - ARY-7 Assessment Tool: ARY-7 Assessment 76279 ([id number])
[2024-01-03 13:46] VITALS: BP 100/70; PULSE 61; O2SAT 98; BMI 31.6
== END 2024-01-03 14:25 | disposition home or self-care (01) ==
PROVIDERS: PCP Internal Medicine; Visit Provider Internal Medicine
DX: E06.3 Autoimmune thyroiditis (principal); F41.1 Generalized anxiety disorder; Z12.83 Encounter for screening for malignant neoplasm of skin; E03.8 Other specified hypothyroidism
CPT/HCPCS: 99214

== ENCOUNTER 2024-04-17 09:55 | Outpatient (AMB) | payer OTHER, SELFPAY ==
[2024-04-17 10:01] VITALS: BP 104/64; PULSE 82; O2SAT 99; BMI 31.4
--- NOTE | 2024-04-17 10:01 | A.OFFPC_ITS ---
Vital Signs 04/17/24 10:01 Height 5 ft 5 in Weight 189 lb BMI 31.4 BP 104/64 Blood Pressure Location Rt brachial Position Sitting Pulse 82 Pulse Oximetry (%) 99 Oxygen Delivery Method Room Air Intake Visit Reasons: ANNUAL - see comments Intake Note: Pt is here today for her PE: Last papsmear 01/24/19 Is last menstrual period known: Yes Last menstrual period: 03/27/24 Allergies No Known Allergies [No Known Allergies*] Allergy (Verified 04/17/24 10:38) Dust and Mold Allergy (Unknown, Uncoded 04/17/24 10:38) Unknown Medication List - Last Reconciled 04/17/24 by Pat Sevilla MD levothyroxine 50 mcg PO DAILY 90 days sertraline 50 mg PO QAM Tobacco use date assessed: 04/17/24 Dental Screening Dental Screen Date: 04/17/24 Did you have a dental visit in the last 12 months?: Yes Did you have a dental problem in the last 6 months where you did not have access to dental care?: No Was dental information given to patient?: Patient has dentist HPI ANNUAL - see comments HPI Details 39-year-old lady here today for physical exam. She has Gissell's thyroiditis with subsequent hypothyroidism, currently on levothyroxine 50 mcg taken once a day. She takes sertraline 50 mg once a day for anxiety disorder, which has been helping. She is up-to-date with her cervical cancer screening with last Pap smear done in 2019 in [facility]. Was referred [place] [facility] earlier this year, but canceled, advised to schedule appointment Has had COVID vaccines in the past does not want to get booster any other vaccination Complains an ill-defined lump on anterior neck, nontender present for the last several weeks denies any problems swallowing . She has also been feeling several lumps on both breasts, nontender with no abnormal nipple discharge [facility] Medical History (Updated 04/17/24 @ 11:03 by Pat Sevilla MD) 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 Paternal Grandmother Diabetes mellitus Pituitary microadenoma Mental health disorder Paternal Aunt Mental health disorder Social History Housing: Apartment Alcohol intake: never Patient Tobacco Use Status: Never used Tobacco e-Cigarette/Vaping Use: Never Used Second Hand Smoke Exposure: No service: No Current occupational status: employed Cognitive needs: No Hearing needs: No Vision needs: No Female Reproductive History Menstrual Date of last menstrual period: 03/27/24 Questionnaire Thrive Questionnaire Date Thrive assessed: 01/03/24 I am a: Patient What is your living situation today?: I have a steady place to live Within the past 12 months, did the food you bought not last and you didn't have the money to get more?: Never true Within the past 12 months, did you worry whether your food would run out before you got money to buy more?: Never true Do you have trouble paying for medicines?: No Do you have trouble getting transportation to medical appointments?: No Do you have trouble paying your heating and electricity bill?: No Do you have trouble taking care of your child, family member or friend?: No Do you have trouble with day-to-day activities such as bathing, preparing meals, shopping, managing finances, etc.?: No Are you currently unemployed and looking for a job?: No Are you interested in more education?: No Please select the resources that you would like help with: None Currently or been in a relationship where the following occur: No concerns reported THRIVE Score: 0 AUDIT C Alcohol Use Questionnaire (AUDIT-C) 1. How often do you have a drink containing alcohol?: Never Total Score: 0 ARY-7 AMB Questionnaire ARY-7 Date ARY - 7 assessed: 01/03/24 Source: Developed by Drs. Kike Gannon, Cecilia Ronquillo, Christian House and colleagues, with an educational yakelin from [employer]. Review of Systems Const Denies body aches, Denies headache(s) and Denies malaise Eyes Reports no additional complaints ENT Denies dizziness, Denies headache(s), Denies nasal congestion and Denies nasal discharge Card Denies chest pain, Denies lightheadedness, Denies palpitations and Denies dyspnea Resp Denies chest congestion, Denies cough and Denies dyspnea GI Denies abdominal pain, Denies change in bowel habits and Denies heartburn Denies dysuria, Denies urinary hesitancy and Reports urinary urgency Musc Reports no additional complaints Skin/Breast Reports as per HPI, Denies lesions and Denies rash Neuro Denies dizziness and Denies headache(s) Psych Reports no additional complaints Endo Denies polydipsia, Denies polyuria and Denies palpitations Homer/Lymph Reports no additional complaints Aller/Immun Reports no additional complaints Physical exam (Primary Care) Vital Signs: Last Vital Signs Pulse 82 04/17/24 10:01 BP 104/64 04/17/24 10:01 Pulse Ox 99 04/17/24 10:01 Oxygen Delivery Method Room Air 04/17/24 10:01 BMI result Body Mass Index 31.4 Tobacco/Smoking Status: Tobacco use Status Tobacco use date assessed 04/17/24 04/17/24 10:02 Patient Tobacco Use Status Never used Tobacco 04/17/24 10:02 e-Cigarette/Vaping Use Never Used 04/17/24 10:02 Thrive Assessment: Date of Thrive Assessment Date Thrive assessed 01/03/24 04/17/24 10:02 Currently or been in a relationship where the following occur: No concerns reported Advance Care Planning discussion: Completed/Scanned Date of discussion: 04/17/24 Who was present: Patient Forms completed: Health Care Proxy Time spent: 16-45 minutes Actual minutes spent: 3 Const Orientation/consciousness: patient oriented x3 [facility] Head: Yes normocephalic Ears: external ears normal, TM's normal bilaterally and EAC's normal General nose exam: Normal external nose present Face and sinus: Yes face symmetric Mouth: Normal oral and palatal mucosa present, tongue normal, oropharynx normal and moist mucous membranes Eyes General: appearance normal, both eyes and all related structures Neck Other: Ill-defined lump on left anterior cervical triangle of neck, nontender to palpate Neck: Yes full ROM, Yes no lymphadenopathy and Yes supple Thyroid: Thyroid normal (Nonpalpable) Chest Breast/axilla inspection: normal inspection of the breasts and normal inspection of the axillae Breast/axilla palpation: abnormal palpation of the breast (Mass at 10 and 11 o'clock position of right breast& 07:00 left breast) Resp Auscultation: clear to auscultation bilaterally Cardio Rate: regular rate Rhythm: regular rhythm Heart sounds: S1 normal heart sound present and S2 normal heart sound present GI Palpation (GI): Soft to palpation, nontender, no guarding and no masses Auscultation: normal bowel sounds General: Yes no CVA tenderness and Yes deferred (Has been referred to [facility] for her routine Pap and pelvic exam) Back/Spine/Pelvis Back: no CVA tenderness and No back tenderness Skin General skin exam: no rashes or lesions noted Neuro General: patient oriented x3, gait normal, moves all extremities, Normal light touch and pain sensation and no focal motor deficits Cranial nerves: Yes CN's II-XII intact bilaterally Cognition (Neuro): normal cognition Gait exam (Neuro): Normal gait present Extrem General: Yes normal to inspection, Yes full ROM, Yes no joint enlargement, Yes no clubbing, cyanosis or edema, Yes no calf tenderness and Yes normal gait Psych Appearance: grossly normal and well kempt Mental Status: mental status grossly normal Speech and movement: Normal speech and movement present Affect: normal affect Thought process: Normal thought process present Thought content: Normal thought content present Coding Level of Care Code Est Pt Prev Care 18-39y(61557) Diagnoses Annual visit for general adult medical examination with abnormal findings Z00.01 Localized swelling, mass and lump, neck R22.1 Mass of upper outer quadrant of right breast N63.11 Breast mass location: upper outer quadrant Mass of lower inner quadrant of left breast N63.24 Breast mass location: lower inner quadrant 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 History of vitamin D deficiency Z86.39 Generalized anxiety disorder F41.1 Anxiety disorder type: generalized anxiety disorder Advanced directives, counseling/discussion Z71.89 Additional Codes Vital Signs *Quality* - Advance Care Planning discussion: Completed/Scanned ([id number]) Vital Signs *Quality* - Time spent: 16-45 minutes ([id number]) Assessment & Plan Assessment & Plan (1) Annual visit for general adult medical examination with abnormal findings: Code(s): Z00.01 - Encounter for general adult medical examination with abnormal findings Plan: Will check appropriate labs. Recommended dental visit every 6 months and regular eye exams, at least every 2 years. Take adequate calcium in diet and vitamin-D 3 at 2000 IU per cap once a day, in addition to weight-bearing exercises to help maintain good muscle tone and weight control. Palpable mass palpated on both breasts, referred for breast ultrasound bilateral, she has been referred to [facility] for her routine Pap and pelvic exam earlier this year, has been canceled several times, patient advised to call them and schedule an appointment. Has had 2 COVID vaccines but does not want to get boosters and does not want to get any other vaccination. (2) Localized swelling, mass and lump, neck: Code(s): R22.1 - Localized swelling, mass and lump, neck Plan: Ultrasound soft tissue head and neck ordered (3) Mass of right breast: Code(s): N63.10 - Unspecified lump in the right breast, unspecified quadrant Category: Medical Qualifiers: Breast mass location: upper outer quadrant Qualified Code(s): N63.11 - Unspecified lump in the right breast, upper outer quadrant Plan: Ill-defined palpable mass at 11 and 10 o'clock position right breast, ordered diagnostic breast ultrasound (4) Mass of left breast: Code(s): N63.20 - Unspecified lump in the left breast, unspecified quadrant Category: Medical Qualifiers: Breast mass location: lower inner quadrant Qualified Code(s): N63.24 - Unspecified lump in the left breast, lower inner quadrant Plan: Ill-defined mass palpated at 07:00 o'clock position of left breas, left breast ultrasound ordered (5) Hypothyroidism due to Gissell's thyroiditis: Code(s): E06.3 - Autoimmune thyroiditis Category: Medical Plan: Per patient request, referral ordered to see endocrine clinic at [facility], Dr. Daniel Paniagua. Last thyroid levels were within normal limits. Continued on current dose of levothyroxine 50 mcg daily. Ordered TSH, free T4 and thyroid peroxidase antibody (6) History of vitamin D deficiency: Code(s): Z86.39 - Personal history of other endocrine, nutritional and metabolic disease Category: Medical Plan: Will check vitamin-D level (7) Anxiety disorder: Code(s): F41.9 - Anxiety disorder, unspecified Category: Medical Qualifiers: Anxiety disorder type: generalized anxiety disorder Qualified Code(s): F41.1 - Generalized anxiety disorder Plan: Stable and controlled on sertraline 50 mg taken once a day in a.m. (8) Advanced directives, counseling/discussion: Code(s): Z71.89 - Other specified counseling Plan: Initiated the conversation about Advanced Directives. Advanced Directives help patients prepare for current and future decisions about their medical treatment and place of care. Discussed with patient that it is a process where a patients current condition and prognosis are reviewed, their wishes for information regarding their illness are elicited, and likely medical dilemmas are presented and options discussed. Healthcare proxy form completed today. The form can be amended as needed, reviewed yearly and make changes as needed Orders: Orders US breast RT complete 04/17/24 N63.10 - Unspecified lump in the right breast, unspecified quadrant US breast LT complete 04/17/24 N63.20 - Unspecified lump in the left breast, unspecified quadrant Thyroid Peroxidase Antibodies 04/17/24 E06.3 - Autoimmune thyroiditis, F41.1 - Generalized anxiety disorder, Z13.1 - Encounter for screening for diabetes mellitus, Z13.220 - Encounter for screening for lipoid disorders Free T4 (Free Thyroxine) 04/17/24 E06.3 - Autoimmune thyroiditis, F41.1 - Generalized anxiety disorder, Z13.1 - Encounter for screening for diabetes mellitus, Z13.220 - Encounter for screening for lipoid disorders Aspartate Amino Transferase 04/17/24 E06.3 - Autoimmune thyroiditis, F41.1 - Generalized anxiety disorder, Z13.1 - Encounter for screening for diabetes mellitus, Z13.220 - Encounter for screening for lipoid disorders Vitamin D 25-OH Total 04/17/24 E06.3 - Autoimmune thyroiditis, F41.1 - Generalized anxiety disorder, Z13.1 - Encounter for screening for diabetes mellitus, Z13.220 - Encounter for screening for lipoid disorders US soft tiss head and/or neck 04/17/24 R22.1 - Localized swelling, mass and lump, neck Thyroid Stimulating Hormone 04/17/24 E06.3 - Autoimmune thyroiditis, F41.1 - Generalized anxiety disorder, Z13.1 - Encounter for screening for diabetes me llitus, Z13.220 - Encounter for screening for lipoid disorders Alanine Aminotransferase 04/17/24 E06.3 - Autoimmune thyroiditis, F41.1 - Generalized anxiety disorder, Z13.1 - Encounter for screening for diabetes mellitus, Z13.220 - Encounter for screening for lipoid disorders Basic Metabolic Panel Fasting 04/17/24 E06.3 - Autoimmune thyroiditis, F41.1 - Generalized anxiety disorder, Z13.1 - Encounter for screening for diabetes mellitus, Z13.220 - Encounter for screening for lipoid disorders Lipid Panel 04/17/24 E06.3 - Autoimmune thyroiditis, F41.1 - Generalized anxiety disorder, Z13.1 - Encounter for screening for diabetes mellitus, Z13.220 - Encounter for screening for lipoid disorders Referrals Endocrinology Referral E06.3 - Autoimmune thyroiditis
== END 2024-04-17 11:28 | disposition home or self-care (01) ==
LOC: HO.HMCC 09:56
PROVIDERS: PCP Internal Medicine; Visit Provider Internal Medicine
DX: Z00.01 Encounter for general adult medical examination with abnormal findings (principal); R22.1 Localized swelling, mass and lump, neck; N63.11 Unspecified lump in the right breast, upper outer quadrant; N63.24 Unspecified lump in the left breast, lower inner quadrant; E06.3 Autoimmune thyroiditis; Z86.39 Personal history of other endocrine, nutritional and metabolic disease; F41.1 Generalized anxiety disorder; Z71.89 Other specified counseling; Z00.00 Encounter for general adult medical examination without abnormal findings

== ENCOUNTER → 2024-04-17 09:55 | Outpatient (BNVA) | payer OTHER, SELFPAY | PROVIDERS: PCP Internal Medicine; Visit Provider Internal Medicine ==

== ENCOUNTER 2024-04-24 13:53 | Outpatient (REF) | payer OTHER, SELFPAY ==
--- NOTE | ~2024-04-24 | US_ITS ---
EXAMINATION: US SOFT TISSUE OF THE NECK CLINICAL INFORMATION: Localized swelling, mass and lump, neck. Anterior. COMPARISON: None available. TECHNIQUE: Linear transducer grayscale and color Doppler examination of the abdomen right submandibular neck (approximately levels 1B bilaterally). FINDINGS: Targeted ultrasound examination of the anterior neck over the site of palpable lump shows no focal lesion with abnormal echogenicity or abnormal fluid collection. Bilateral benign level IIb cervical lymph nodes with fatty hilum, no pathological enlargement are seen. Incidental finding of hyperemic heterogeneous thyroid gland. US/US soft tiss head and/or neck IMPRESSION: 1. No focal lesion or abnormal fluid collection seen in the anterior neck over the site of palpable lump. 2. Incidental finding of hyperemic heterogeneous thyroid gland in this patient who has history of Gissell thyroiditis. Electronically signed by: Fab Hernandez MD 05/22/2024 12:14 PM AIDE
== END 2024-04-24 13:54 | disposition home or self-care (01) ==
LOC: HO.US 13:53
PROVIDERS: PCP Internal Medicine; Visit Provider Internal Medicine
DX: R22.1 Localized swelling, mass and lump, neck (principal)
CPT/HCPCS: 76536

== ENCOUNTER 2024-06-01 08:06 | Outpatient (REF) | payer OTHER, SELFPAY ==
[2024-06-01 11:34] LABS: Alanine Aminotransferase 24 U/L (0-31); Anion Gap 9 (12-20); Aspartate Amino Transferase 24 U/L (5-31); Blood Urea Nitrogen 12 mg/dL (9-16); Calcium 9.2 mg/dL (8.4-10.2); Carbon Dioxide 28 mmol/L (22-29); Chloride 106 mmol/L (96-108); Cholesterol 242 mg/dL (<200); Estimated Glomerular Filt Rate > 60; Free T4 (Free Thyroxine) 1.13 ng/dL (0.71-1.85); Glucose Fasting 96 mg/dL (60-99); HDL Cholesterol 72 mg/dL (>40); LDL Cholesterol Calculated 160 mg/dL (<100); Potassium 4.2 mmol/L (3.3-5.1); Sodium 139 mmol/L (135-145); Thyroid Stimulating Hormone 3.53 uIU/mL (0.32-4.0); Triglycerides 50 mg/dL (<150); Vitamin D 25-OH Total 46.8 ng/mL (>30)
[2024-06-04 13:04] LABS: Thyroid Peroxidase Antibodies 489 IU/mL (<9)
== END 2024-06-01 08:07 | disposition home or self-care (01) ==
LOC: HO.HMGCLDS 08:06
PROVIDERS: PCP Internal Medicine; Visit Provider Internal Medicine
DX: E06.3 Autoimmune thyroiditis (principal); F41.1 Generalized anxiety disorder; Z13.220 Encounter for screening for lipoid disorders; Z13.1 Encounter for screening for diabetes mellitus
CPT/HCPCS: 36415; 80048; 80061; 82306; 84439; 84443; 84450; 84460; 86376

== ENCOUNTER 2024-06-21 15:01 | Outpatient (AMB) | payer OTHER, SELFPAY ==
--- NOTE | 2024-06-21 15:04 | MHC.OFFVIS ---
Vital Signs 06/21/24 15:05 Height 5 ft 5 in Weight 183 lb 12.465 oz BMI 30.6 BP 94/64 Blood Pressure Location Rt brachial Position Sitting Pulse 76 Pulse Source Pulse Oximeter Intake Visit Reasons: Autoimmune thyroiditis Intake Note: New patient present today for Autoimmune thyroiditis office visit. Black Powder Glazing Operator Required: No Accompanied by: Self / Same As Patient Allergies No Known Allergies [No Known Allergies*] Allergy (Verified 06/21/24 15:07) Dust and Mold Allergy (Unknown, Uncoded 06/21/24 15:07) Unknown Medication List - Last Reconciled 06/21/24 by Enriqueta Hebert MD levothyroxine 50 mcg PO DAILY 90 days sertraline 50 mg PO QAM HPI Comments Details: 39 years old female here today for initial evaluation of hypothyroidism. Diagnosed with hypothyroidism 20 years ago when she was in college. Currently on levothyroxine 50 mcg daily, good administration, good adherence Patient currently denies heat or cold intolerance, diarrhea or constipation, hair loss, palpitation, anxiety, mood changes, low energy, changes in appearance of eyes or vision changes, tremors, increased diaphoresis or dry skin. ? Lost weight due to dietary practices, lost 30 lbs over a year. Patient denies any difficulty swallowing, pain on swallowing or voice changes or difficulty breathing. Patient denies any history of childhood neck radiation. Denies having ever used lithium, amiodarone or biotin supplements. Patient denies any family history of thyroid cancer or thyroid disease. 1 , was a miscarriage at age 23 LMP: 06/12/24 Periods are regular Physical exam General: sitting comfortably in no acute distress HEENT: normocephalic/atraumatic, moist oral mucosa Neck: supple, symmetrical, no thyromegaly Cardiac: normal heart sounds Pulm: normal breath sounds B/L, no added breath sounds Abd: not distended, no tenderness Extremities: no edema, no signs of myxedema Neuro: AAO x3, Speech: normal, no facial droop, moving all 4 extremities Laboratory Tests 10/28/23 06/01/24 08:19 08:30 TSH 3.01 3.53 Free T4 0.93 1.13 Laboratory Tests 10/28/23 06/01/24 08:19 08:30 Thyroid Peroxidase Ab 425 H 489 H COUNT INCLUDES THE [facility] Medical History (Updated 04/17/24 @ 11:03 by Pat Sevilla MD) 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 Labs from May 2024 shows she is biochemically euthyroid. Plan: -continue levothyroxine 50 mcg daily -follow up in 1 year with TSH and free T4 -she is planning , counseled about increased dose of levothyroxine during and to increase her dose by 30% when she finds out she is and let us know right away Plan See above Orders: Orders Thyroid Stimulating Hormone 1 Year E06.3 - Autoimmune thyroiditis Free T4 (Free Thyroxine) 1 Year E06.3 - Autoimmune thyroiditis Medications: Refilled levothyroxine 50 mcg PO DAILY 90 days 90 tabs 4RF E03.8 - Other specified hypothyroidism, E06.3 - Autoimmune thyroiditis Patient Instructions: Continue levothyroxine 50 mcg daily When you get please notify us during office hours Increase levothyroxine by 2 pills extra in a week when you find out you are Coding Level of Care Code New Pt Level 4 (21702) Diagnoses 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
[2024-06-21 15:05] VITALS: BP 94/64; PULSE 76; BMI 30.6
== END 2024-06-21 15:36 | disposition home or self-care (01) ==
PROVIDERS: PCP Internal Medicine; Visit Provider Student in an Organized Health Care Education/Training Program
DX: E06.3 Autoimmune thyroiditis (principal)
CPT/HCPCS: 99204

== ENCOUNTER → 2024-06-21 15:01 | Outpatient (BNVA) | payer OTHER, SELFPAY | PROVIDERS: PCP Internal Medicine; Visit Provider Student in an Organized Health Care Education/Training Program ==

== ENCOUNTER → 2024-07-17 16:22 | Outpatient (BNV) | payer OTHER, SELFPAY | PROVIDERS: PCP Internal Medicine; Visit Provider Radiology Diagnostic Radiology | DX: D35.2 Benign neoplasm of pituitary gland (principal) | CPT/HCPCS: 70553 ==

== ENCOUNTER 2024-08-01 12:59 | Outpatient (REF) | payer OTHER, SELFPAY ==
--- NOTE | ~2024-08-01 | US_ITS ---
EXAMINATION: MM DIAGNOSTIC DIGITAL BREAST TOMOSYNTHESIS, BILATERAL Bilateral Limited ultrasound. CLINICAL INFORMATION: 39-year-old with bilateral palpable lumps. COMPARISON: Mammography: Comparison is made with relevant prior exams. TECHNIQUE: Digital breast mammography with tomosynthesis is performed in both the craniocaudal and mediolateral oblique views along with computer-aided detection (CAD). Bilateral Limited ultrasound. FINDINGS: The breasts are heterogeneously dense, which may obscure small masses (ACR BI-RADS breast composition Category c). There are no significant masses, abnormal calcifications, or other abnormalities. Targeted color Doppler ultrasound scanning in the left breast from 7-11 o'clock area of patient's palpable lump demonstrates normal fibronodular breast tissue. There is no sonographic abnormality. Targeted color Doppler ultrasound scanning in the right breast retroareolar region demonstrates normal fibroglandular breast tissue. Targeted color Doppler ultrasound scanning in the right upper outer quadrant demonstrates normal fibroglandular breast tissue, there is an incidental hypoechoic area which is a probable group of adjacent simple to minimally complicated cysts with thin intervening normal breast tissue versus solid mass at 2:00 6 cm from nipple measuring 3 x 3 x 6 mm. Results are provided to the patient at time of visit by the technologist. US/US breast BI limited mamm only IMPRESSION: Left: Negative. Right: Solid mass versus complicated cyst at 10:00 6 cm from the nipple. Recommend 6 month follow-up right breast ultrasound for further evaluation of stability. ASSESSMENT: BI-RADS BI-RADS 3 - Probably benign finding(s) - 6 month follow-up suggested RECOMMENDATION: 6 Month F/U This patient's information was entered into a reminder system with a target due date for their next mammogram. Electronically signed by: Noris Shook DO 08/01/2024 02:44 PM [facility]
== END 2024-08-01 13:00 | disposition home or self-care (01) ==
LOC: HO.MAMMO 12:59
PROVIDERS: PCP Internal Medicine; Visit Provider Internal Medicine
DX: N63.24 Unspecified lump in the left breast, lower inner quadrant (principal)
CPT/HCPCS: 76642; 77062; 77066

== ENCOUNTER → 2024-08-01 13:04 | Outpatient (BNV) | payer OTHER, SELFPAY | PROVIDERS: PCP Internal Medicine; Visit Provider Internal Medicine | DX: N63.11 Unspecified lump in the right breast, upper outer quadrant (principal); N63.25 Unspecified lump in the left breast, overlapping quadrants | CPT/HCPCS: 76642; 77062; 77066 ==

== ENCOUNTER 2024-10-31 13:41 | Outpatient (AMB) | payer OTHER, SELFPAY ==
--- NOTE | 2024-10-31 13:50 | MHC.OFFWIV ---
Intake Vital Signs 10/31/24 13:53 Height 5 ft 5 in Weight 168 lb BMI 28.0 BP 126/82 Blood Pressure Location Rt brachial Position Sitting Pulse 68 Pulse Source Pulse Oximeter Temp 98.2 F Temp Source Oral Pulse Oximetry (%) 98 Oxygen Delivery Method Room Air Intake Visit Reasons: EP Test for [place] Intake Note: Patient here for fever on and off, fatigued, rash throughout her body and neck pain. 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 She reports that the fevers, which lasted for about 3 days, and for which she took Tylenol, have since resolved. She is unsure if she had some sort of virus. She states that last week, she was doing a lot of yard work and noticed many deer ticks around. She is not sure if she as bitten, however she is quite concerned about Lyme and would like testing if possible. She reports a splotchy, raised rash all over her body. It is not significantly itchy. Does note using a new product at home recently. She also notes a red, somewhat itchy rash underneath both of her breasts. 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 Paternal Grandmother Diabetes mellitus Pituitary microadenoma Mental health disorder Paternal Aunt Mental health disorder Social History Housing: Apartment Alcohol intake: never Patient Tobacco Use Status: Never used Tobacco e-Cigarette/Vaping Use: Never Used Second Hand Smoke Exposure: No service: No Current occupational status: employed Cognitive needs: No Hearing needs: No Vision needs: No Review of Systems Const All systems reviewed & are unremarkable except as noted in HPI and below Physical Exam Vital Signs: Last Vital Signs Temp 98.2 F 10/31/24 13:53 Pulse 68 10/31/24 13:53 BP 126/82 10/31/24 13:53 Pulse Ox 98 10/31/24 13:53 Oxygen Delivery Method Room Air 10/31/24 13:53 BMI result Body Mass Index 28.0 Const General: cooperative and no acute distress Limitations: no limitations HEENT Head: Yes normal to inspection Ears: hearing grossly normal bilaterally Neck Neck: Yes no lymphadenopathy Resp Effort & Inspection: normal respiratory effort Auscultation: clear to auscultation bilaterally Cardio Rate: regular rate Rhythm: regular rhythm Skin Other: Urticaria noted on abdomen, back, arms and legs. Rash consistent with Bess noted beneath bilateral breasts. Extrem General: Yes capillary refill normal and Yes no clubbing, cyanosis or edema Psych Appearance: grossly normal Mental Status: mental status grossly normal Speech and movement: Normal speech and movement present Assessment & Plan Assessment & Plan (1) Rash due to allergy: Code(s): T78.40XA - Allergy, unspecified, initial encounter; R21 - Rash and other nonspecific skin eruption Plan: She is having some sort of allergic reaction. Patient is suspicious of a new products she has recently been using, but is not sure if this is the cause. I am going to start her on a prednisone taper. We reviewed indications, use, possible side effects of medications. As for her recent illness, it sounds to have been viral in nature. We discussed use of Tylenol as needed, adequate hydration and healthy food/vitamin intake as she continues to recover from this. Lyme test ordered, however patient aware she should not test until at least 12/01 as she feels she may have been bitten about 2 weeks ago, and the test requires at least 6 weeks from exposure. She does not follow up with her PCP, Dr. Sevilla, until April and would like a sooher appointment if possible. I will reach out to PCP to see if this is a possibility. (2) Skin yeast infection: Code(s): B37.2 - Candidiasis of skin and nail Plan: She has a yeast infection under her breasts. I have prescribed nystatin powder for this, and we reviewed proper use. Orders: Orders Lyme IgG/IgM w/reflex to WB 4 Weeks W57.XXXA - Bitten or stung by nonvenomous insect and other nonvenomous arthropods, initial encounter Medications: New nystatin Apply thin layer of powder beneath breasts twice a day until rash resolves. 1 appl topical BID 30 grams 0RF B37.2 - Candidiasis of skin and nail prednisone Take 4 tabs for two days, then take 3 tabs for two days, then take 2 tabs for two days, then take 1 tab for 2 days. 10 mg PO DAILY 20 tabs 0RF R21 - Rash and other nonspecific skin eruption, T78.40XA - Allergy, unspecified, initial encounter Coding Level of Care Code Est Pt Level 4 (07169) Diagnoses Rash due to allergy T78.40XA; R21 Skin yeast infection B37.2
[2024-10-31 13:53] VITALS: BP 126/82; PULSE 68; TEMP 36.8; O2SAT 98; BMI 28.0
--- OUTSIDE RECORDS SUMMARY | 2024-10-31 14:10 | XMS_ITS | Clinical Summary ---
Author Organization [facility] Address [address] [place] [id number] Phone Care Team Providers Care State Pilot Name Role Phone Alex Key MD Primary Care Provider Immunizations Immunization Administration Dates Next Due COVID-19 (Pre-04/04) Moderna Vaccine, mRNA, PF 0 08/07/2020,07/10/2020 Social History Tobacco Use Types Packs/Day Years Used Date Smoking Tobacco: Never Assessed Education Answer Date Recorded Are you interested in more education? Not on travis e 10/08/2022 Are you concerned about learning? Not on file 10/08/2022 No 10/08/2022 No 10/08/2022 Digital Access Answer Date Recorded No 11/06/2022 No 11/06/2022 No 11/06/2022 Reliable internet access at home? Not on file 11/06/2022 Device with a working camera? Not on file Comments Unknown Sex and Gender Information Value Date Recorded Sex Assigned at Not on file Legal Sex Female 10:19 AM EST Gender Identity Not on file Sexual Orientation Not on file Plan of Treatment Health Maintenance Due Date Last Done Comments Adult Td,Tdap Booster 1986 DEPRESSION SCREENING 1998 SMOKING Hx and SMOKELESS TOBACCO SCREENING 1999 HEPATITIS C SCREENING 2004 HIV ONE-TIME SCREENING (18-6 5 YEARS) 2004 PAP SMEAR 2007 COVID-19 VACCINE (2023-2 5 season) 2024 08/07/2020, 07/10/2020 HEPATITIS A VACCINES Aged Out No long er eligible based on patient's age to complete this topic HIB VACCINES Aged Out No longer eligi ble based on patient's age to complete this topic MENINGOCOCCAL VACCINES (ACWY) Aged Out No longer eligible based on patient's age to complete this topic MENINGOCOCCAL VACCINES (B) Aged Out N o longer eligible based on patient's age to complete this topic PNEUMOCOCCAL VACCINES (0-49 years) Aged Out No longer eligible b ased on patient's age to complete this topic Medical Devices Not on file Insurance [employer] NET PARTIAL Member Subscriber Plan / Payer (Ef fective 2020-Present) Name:Christen Sanderson Relation to Subscriber:Self Name:Christen Sanderson Payer ID:Not on file Group ID:Not on file Type:Medicaid Address: [address] HMO [employer] NET PARTIAL Member Subscriber Plan / Payer (Ef fective 2020-Present) Name:Christen Sanderson Relation to Subscriber:Self Name:Christen Sanderson Payer ID:Not on file Group ID:Not on file Type:Medicaid Address: [address] HMO [employer] NET PARTIAL Member Subscriber Plan / Payer (Ef fective 2020-Present) Name:Christen Sanderson Relation to Subscriber:Self Name:Christen Sanderson Payer ID:Not on file Group ID:Not on file Type:Medicaid Address: [address] [employer] NET PARTIAL Member Subscriber Plan / Payer (Ef fective 2020-Present) Name:Christen Sanderson Relation to Subscriber:Self Name:Christen Sanderson Payer ID:Not on file Group ID:Not on file Type:Medicaid Address: [address] HMO [facility] [employer] NET PARTIAL Member Subscriber Plan / Payer (Ef fective 2020-Present) Name:Christen Sanderson Relation to Subscriber:Self Name:Christen Sanderson Payer ID:Not on file Group ID:Not on file Type:Medicaid Address: [address] [facility] [employer] NET PARTIAL Member Subscriber Plan / Payer (Ef fective 2020-Present) Name:Christen Sanderson Relation to Subscriber:Self Name:LibertymariluzRodolfo [place]ale Payer ID:Not on file Group ID:Not on file Type:Medicaid Address: [address] [employer] NET PARTIAL Member Subscriber Plan / Payer (Ef fective 2020-Present) Name:Christen Sanderson Relation to Subscriber:Self Name:Christen Sanderson Payer ID:Not on file Group ID:Not on file Type:Medicaid Address: [address] HMO [facility] [employer] NET PARTIAL Member Subscriber Plan / Payer (Ef fective 2020-Present) Name:Christen Sanderson Relation to Subscriber:Self Name:Christen Sanderson Payer ID:Not on file Group ID:Not on file Type:Medicaid Address: [address] HMO [facility] PARTIAL Member Subscriber Plan / Payer (Ef fective 2020-Present) Name:Kin Rodolfojackiestu Relation to Subscriber:Self Name:LibertymariluzRodolfo sunjackiestu Payer ID:Not on file Group ID:Not on file Type:Medicaid Address: [address] HMO Care Teams State Pilot Relationship Specialty Start Date End Date Alex Key MD [address] [place] [id number] PCP - General Otolaryngology 04/15/20 Additional Source Comments The information contained in this document represents components of the legal health record. It is not the complete legal health record.[facility]
== END 2024-10-31 14:43 | disposition home or self-care (01) ==
PROVIDERS: PCP Internal Medicine; Visit Provider Nurse Practitioner Family
DX: T78.40XA Allergy, unspecified, initial encounter (principal); R21 Rash and other nonspecific skin eruption; B37.2 Candidiasis of skin and nail

== ENCOUNTER → 2024-10-31 13:41 | Outpatient (BNVA) | payer OTHER, SELFPAY | PROVIDERS: PCP Internal Medicine; Visit Provider Nurse Practitioner Family ==

== ENCOUNTER 2024-11-02 10:27 | Outpatient (AMB) | payer OTHER, SELFPAY ==
[2024-11-02 11:05] VITALS: BP 114/76; PULSE 62; TEMP 37; O2SAT 98
--- NOTE | 2024-11-02 11:05 | AM.OFFWIN_ITS ---
Intake Vital Signs 11/02/24 11:05 Weight 168 lb BP 114/76 Blood Pressure Location Lt brachial Position Sitting Pulse 62 Pulse Source Pulse Oximeter Temp 98.6 F Temp Source Oral Pulse Oximetry (%) 98 Oxygen Delivery Method Room Air Intake Visit Reasons: EP Aches, rash getting worse, fevers Patient Tobacco Use Status: Never used Tobacco Allergies No Known Allergies [No Known Allergies*] Allergy (Verified 10/31/24 13:59) Dust and Mold Allergy (Unknown, Uncoded 10/31/24 13:59) Unknown HPI HPI Comments History of Present Illness Details 39 y/o Female patient who presents to [facility] walk in clinic with c/o Rash all over body despite treatment. Pt was evaluated and treated here 10/31 for generalized non-itchy rash all over body, Fatigue, body aches, and subjective fevers. She received Prednisone Taper and Nystatin Powder. The rash was believed to be Hives and only Fungal under breasts. She is on day 3 of Prednisone - she does admit to some improvement of Rash under breast with the powder. She still does have Subjective fevers (no thermometer at home), Fatigue, and body aches. Reports some symptom relief on Acetaminophen. 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 Paternal Grandmother Diabetes mellitus Pituitary microadenoma Mental health disorder Paternal Aunt Mental health disorder Social History Housing: Apartment Alcohol intake: never Patient Tobacco Use Status: Never used Tobacco e-Cigarette/Vaping Use: Never Used Second Hand Smoke Exposure: No service: No Current occupational status: employed Cognitive needs: No Hearing needs: No Vision needs: No Review of Systems Const All systems reviewed & are unremarkable except as noted in HPI and below Physical Exam Vital Signs: Last Vital Signs Temp 98.6 F 11/02/24 11:05 Pulse 62 11/02/24 11:05 BP 114/76 11/02/24 11:05 Pulse Ox 98 11/02/24 11:05 Oxygen Delivery Method Room Air 11/02/24 11:05 Const General: comfortable and no acute distress Nutritional Appearance: well nourished Orientation/consciousness: patient oriented x3 Resp Effort & Inspection: normal respiratory effort Auscultation: clear to auscultation bilaterally Cardio Rhythm: regular rhythm Heart sounds: S1 normal heart sound present and S2 normal heart sound present Skin Other: Splotchy erythematous flat rash with some Hyperpigmented areas - all over body, torso, back, upper/lower extremities. Rash consistent with Bess of skin. Neuro General: patient oriented x3 Assessment & Plan Assessment & Plan (1) Rash and nonspecific skin eruption: Code(s): R21 - Rash and other nonspecific skin eruption Plan: DDx's: Bess vs Allergic Dermatitis vs Urticaria Continue using Nystatin Powder as prescribed. No clear etiology for the other Symptoms; possibly Viral. Advised to continue taking Acetaminophen for relief. Advised to go to ED if symptoms do not improve or worse. Coding Level of Care Code Est Pt Level 4 (11193) Diagnoses Rash and nonspecific skin eruption R21 Time Spent (min) 20
== END 2024-11-02 11:46 | disposition home or self-care (01) ==
PROVIDERS: PCP Internal Medicine; Visit Provider Nurse Practitioner Family
DX: R21 Rash and other nonspecific skin eruption (principal)

== ENCOUNTER → 2024-11-02 10:27 | Outpatient (BNVA) | payer OTHER, SELFPAY | PROVIDERS: PCP Internal Medicine; Visit Provider Nurse Practitioner Family ==

== ENCOUNTER 2024-12-03 08:31 | Outpatient (REF) | payer OTHER, SELFPAY ==
[2024-12-04 14:54] LABS: Lyme Blot >10.00 index
[2024-12-06 10:40] LABS: Lyme Abs Screen POSITIVE
[2024-12-06 12:44] LABS: 18 KD (IgG) Band REACTIVE; 23 KD (IgG) Band REACTIVE; 23 KD (IgM) Band REACTIVE; 28 KD (IgG) Band NON-REACTIVE; 30 KD (IgG) Band NON-REACTIVE; 39 KD (IgM) Band REACTIVE; 39KD (IgG) Band REACTIVE; 41 KD (IgM) Band REACTIVE; 41KD (IgG) Band REACTIVE; 45 KD (IgG) Band NON-REACTIVE; 58 KD (IgG) Band REACTIVE; 66 KD (IgG) Band NON-REACTIVE; 93 KD (IgG) Band NON-REACTIVE; Lyme IgG Blot Interp POSITIVE (NEGATIVE); Lyme IgM Blot Interp POSITIVE (NEGATIVE)
== END 2024-12-03 08:32 | disposition home or self-care (01) ==
LOC: HO.HMGCLDS 08:31
PROVIDERS: Nurse Practitioner Family; PCP Internal Medicine; Visit Provider Student in an Organized Health Care Education/Training Program
DX: T14.8XXA Other injury of unspecified body region, initial encounter (principal); W57.XXXA Bitten or stung by nonvenomous insect and other nonvenomous arthropods, initial encounter; Y93.9 Activity, unspecified; Y92.9 Unspecified place or not applicable; Y99.9 Unspecified external cause status
CPT/HCPCS: 36415; 86617; 86618

== ENCOUNTER → 2025-02-07 08:00 | Outpatient (BNV) | payer OTHER, SELFPAY | PROVIDERS: PCP Internal Medicine; Visit Provider Radiology Body Imaging | DX: N63.11 Unspecified lump in the right breast, upper outer quadrant (principal) | CPT/HCPCS: 76642 ==

== ENCOUNTER 2025-02-07 08:03 | Outpatient (REF) | payer OTHER, SELFPAY ==
--- NOTE | ~2025-02-07 | US_ITS ---
EXAMINATION: US DIAGNOSTIC ULTRASOUND BREAST, RIGHT CLINICAL INFORMATION: This is a 6-month follow-up of incidental hypoechoic area which is probable group of adjacent simple to minimally complicated cysts with thin intervening normal breast tissue versus solid mass at 10 o'clock position 6 cm from the nipple. COMPARISON: Bilateral diagnostic mammogram and ultrasound on August 01, 2024 TECHNIQUE: Ultrasound of the breast is performed with real-time holland scale imaging and color Doppler. FINDINGS: Redemonstration of hypoechoic area, probably group of adjacent simple to minimally complicated cysts with thin intervening normal breast tissue at 10 o'clock position at 6 cm from the nipple. The largest cyst measures 0.5 x 0.2 x 0.4 cm (previously measured 0.6 x 0.3 x 0.3 cm). Results are provided to the patient at time of visit by the technologist. US/US breast RT limited mamm only IMPRESSION: Right breast: Unchanged hypoechoic area, probable group of adjacent simple to minimally complicated cysts at 10 o'clock position 6 cm from the nipple. A 6-month follow-up is recommended as bilateral diagnostic mammogram and right breast ultrasound in July 2025. ASSESSMENT: BI-RADS 3 - Probably benign finding(s) - 6 month follow-up suggested RECOMMENDATION: 6 Month F/U This patient's information was entered into a reminder system with a target due date for their next mammogram. Electronically signed by: Josephine Huntley MD 02/07/2025 08:36 AM EDT
--- OUTSIDE RECORDS SUMMARY | 2025-02-07 08:20 | XMS_ITS | Clinical Summary ---
Author Organization [facility] Address [address] [place] [phone] Phone Care Team Providers Care Tank Cleaner Name Role Phone Alex Key MD Primary [...] topic Medical Devices Not on file Insurance [facility] NET PARTIAL Member Subscriber Plan / Payer (Ef fective 2020-Present) Name:Christen Sanderson Relation to Subscriber:Self Name:Christen Sanderson Payer ID:Not on file Group ID:Not on file Type:Medicaid Address: [address] HMO [facility] NET PARTIAL Member Subscriber Plan / Payer (Ef fective 2020-Present) Name:Christen Sanderson Relation to Subscriber:Self Name:Christen Sanderson Payer ID:Not on file Group ID:Not on file Type:Medicaid Address: [address] HMO [facility] NET PARTIAL Member Subscriber Plan / Payer (Ef fective 2020-Present) Name:Christen Sanderson Relation to Subscriber:Self Name:Christen Sandreson Payer ID:Not on file Group ID:Not on file Type:Medicaid Address: [address] [facility] NET PARTIAL Member Subscriber Plan / Payer (Ef fective 2020-Present) Name:Christen Sanderson Relation to Subscriber:Self Name:Christen Sanderson Payer ID:Not on file Group ID:Not on file Type:Medicaid Address: [address] HMO [facility] [employer] NET PARTIAL Member Subscriber Plan / Payer (Ef fective 2020-Present) Name:Christen Sanderson Relation to Subscriber:Self Name:Christen Sanderson Payer ID:Not on file Group ID:Not on file Type:Medicaid Address: [address] [facility] [employer] NET PARTIAL Member Subscriber Plan / Payer (Ef fective 2020-Present) Name:Christen Sanderson Relation to Subscriber:Self Name:LibertymariluzRodolfo [place] Payer ID:Not on file Group ID:Not on file Type:Medicaid Address: [address] [employer] NET PARTIAL Member Subscriber Plan / Payer (Ef fective 2020-Present) Name:Christen Sanderson Relation to Subscriber:Self Name:Christen Sanderson Payer ID:Not on file Group ID:Not on file Type:Medicaid Address: [address] HMO [facility] [employer] NET PARTIAL Member Subscriber Plan / Payer (Ef fective 2020-Present) Name:Christen Sanderson Relation to Subscriber:Self Name:Christen Sanderson Payer ID:Not on file Group ID:Not on file Type:Medicaid Address: [address] HMO [facility] PARTIAL Member Subscriber Plan / Payer (Ef fective 2020-Present) Name:Kin Rodolfojackiestu Relation to Subscriber:Self Name:LibertymariluzRodolfo sunjackiestu Payer ID:Not on file Group ID:Not on file Type:Medicaid Address: [address] HMO Care Teams Tank Cleaner Relationship Specialty Start Date End Date Alex Key MD [address] [place] [id number] PCP - General Otolaryngology 04/15/20 Additional Source Comments The information contained in this document represents components of the legal health record. It is not the complete legal health record.[facility]
== END 2025-02-07 08:04 | disposition home or self-care (01) ==
LOC: HO.MAMMO 08:03
PROVIDERS: PCP Internal Medicine; Visit Provider Internal Medicine
DX: N60.01 Solitary cyst of right breast (principal)
CPT/HCPCS: 76642

== ENCOUNTER 2025-02-14 13:25 | Outpatient (AMB) | payer OTHER, SELFPAY ==
--- NOTE | 2025-02-14 13:38 | MHC.PC.OV ---
Vital Signs 02/14/25 13:39 Height 5 ft 5 in Weight 183 lb BMI 30.4 BP 94/58 L Blood Pressure Location Lt brachial Position Sitting Respiration 16 Pulse 74 Pulse Source Pulse Oximeter Temp 98.4 F Temp Source Oral Pulse Oximetry (%) 98 Oxygen Delivery Method Room Air Intake Visit Reasons: Lyme disease f/u Intake Note: Pt is here today to to f/u lyme disease Allergies No Known Allergies (No Known Allergies*) Allergy (Verified 02/14/25 13:39) Dust and Mold Allergy (Unknown, Uncoded 02/14/25 13:39) Unknown Medication List - Last Reconciled 02/24/25 by Pat Sevilla MD levothyroxine 50 mcg PO DAILY 90 days nystatin 1 appl topical BID sertraline 50 mg PO QAM Tobacco use date assessed: 02/14/25 Dental Screening Dental Screen Date: 02/14/25 Did you have a dental visit in the last 12 months?: Yes Did you have a dental problem in the last 6 months where you did not have access to dental care?: No Was dental information given to patient?: Patient has dentist HPI Lyme disease f/u HPI Details 39-year-old female with history of dyslipidemia, hypothyroidism, and anxiety disorder, presents today complaining of recurrent pruritic rash which appears on different parts of her body but mostly on arms and legs, which has been present now for the last week. Was recently seen at [facility] on 02/12 2025 complaining of body aches, chills, cold sweats, cough and sore throat as well as the rash. She has been taking jtnc-dkx-cfrvibs antihistamines, which have provided temporary relief of the itching and resolution of the rash, only to appear on another part of her body. Has been was recently diagnosed with COVID at the same day. 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 Paternal Grandmother Diabetes mellitus Pituitary microadenoma Mental health disorder Paternal Aunt Mental health disorder Social History Housing: Apartment Alcohol intake: never Patient Tobacco Use Status: Never used Tobacco e-Cigarette/Vaping Use: Never Used Second Hand Smoke Exposure: No service: No Current occupational status: employed Cognitive needs: No Hearing needs: No Vision needs: No Questionnaire PHQ-9 Over the last 2 weeks, how often have you been bothered by any of the following problems? 1. Little interest or pleasure in doing things: not at all 2. Feeling down, depressed, or hopeless: not at all 3. Trouble falling or staying asleep, or sleeping too much: not at all 4. Feeling tired or having little energy: not at all 5. Poor appetite or overeating: not at all 6. Feeling bad about yourself - or that you are a failure or have let yourself or your family down: not at all 7. Trouble concentrating on things, such as reading the newspaper or watching television: not at all 8. Moving or speaking so slowly that other people could have noticed. Or the opposite - being so fidgety or restless that you have been moving around a lot more than usual: not at all 9. Thoughts that you would be better off or of hurting yourself in some way: not at all Total score: 0 Depression Screening Interpretation: Negative Depression Screening Done: Yes 71693 - PHQ-9 Billing: Yes Source: Developed by Drs. Kike Gannon, Cecilia Ronquillo, Christian House and colleagues, with an educational yakelin from [employer]. Thrive Questionnaire Date Thrive assessed: 02/14/25 I am a: Patient What is your living situation today?: I have a steady place to live Within the past 12 months, did the food you bought not last and you didn't have the money to get more?: Never true Within the past 12 months, did you worry whether your food would run out before you got money to buy more?: Never true Do you have trouble paying for medicines?: No Do you have trouble getting transportation to medical appointments?: No Do you have trouble paying your heating and electricity bill?: No Do you have trouble taking care of your child, family member or friend?: No Do you have trouble with day-to-day activities such as bathing, preparing meals, shopping, managing finances, etc.?: No Are you currently unemployed and looking for a job?: No Are you interested in more education?: No Please select the resources that you would like help with: None Currently or been in a relationship where the following occur: I choose not to answer THRIVE Score: 0 AUDIT C Alcohol Use Questionnaire (AUDIT-C) 1. How often do you have a drink containing alcohol?: Never 3. How often do you have six or more drinks on one occasion?: Never Total Score: 0 Score Reviewed/Action Taken: Yes ARY-7 AMB Questionnaire ARY-7 Date ARY - 7 assessed: 02/14/25 Feeling nervous, anxious, or on edge: 0 = Not at all Not being able to stop or control worryin = Not at all Worrying too much about different things: 0 = Not at all Trouble relaxin = Not at all Being so restless that it is hard to sit still: 0 = Not at all Becoming easily annoyed or irritable: 0 = Not at all Feeling afraid as if something awful might happen: 0 = Not at all Total ARY-7 score (0-4 normal; 5-9 mild; 10-14 moderate; 15-21 severe): 0 Source: Developed by Drs. Kike Gannon, Cecilia Ronquillo, [facility] and colleagues, with an educational yakelin from [employer]. ARY-7 Assessment Billing ARY-7 Assessment Tool: ARY-7 Assessment 79478 Review of Systems Const All systems reviewed & are unremarkable except as noted in HPI and below Denies fever(s) and Denies headache(s) ENT Denies otalgia, Denies headache(s) and Denies nasal congestion Card Denies chest pain and Denies dyspnea Resp Denies cough and Denies dyspnea GI Denies abdominal pain, Denies change in bowel habits, Denies dyspepsia and Denies nausea Reports no additional complaints Neuro Denies headache(s) Physical exam (Primary Care) Vital Signs: Last Vital Signs Temp 98.4 F 02/14/25 13:39 Pulse 74 02/14/25 13:39 Resp 16 02/14/25 13:39 BP 94/58 L 02/14/25 13:39 Pulse Ox 98 02/14/25 13:39 Oxygen Delivery Method Room Air 02/14/25 13:39 BMI result Body Mass Index 30.4 Tobacco/Smoking Status: Tobacco use Status Tobacco use date assessed 02/14/25 02/14/25 13:41 Patient Tobacco Use Status Never used Tobacco 02/14/25 13:41 e-Cigarette/Vaping Use Never Used 02/14/25 13:41 PHQ-9: PHQ-9 Score PHQ-9: Total score 0 02/14/25 14:08 Depression Screening Interpretation: Negative Thrive Assessment: Date of Thrive Assessment Date Thrive assessed 02/14/25 02/14/25 13:41 Currently or been in a relationship where the following occur: I choose not to answer Const Orientation/consciousness: patient oriented x3 HENMT Ears: external ears normal General nose exam: Normal external nose present Face and sinus: Yes face symmetric Mouth: Normal oral and palatal mucosa present, tongue normal and moist mucous membranes Eyes General: appearance normal, both eyes and all related structures Neck Neck: Yes full ROM, Yes no lymphadenopathy and Yes supple Resp Auscultation: clear to auscultation bilaterally Cardio Rate: regular rate Rhythm: regular rhythm Heart sounds: S1 normal heart sound present and S2 normal heart sound present GI Palpation (GI): Soft to palpation and nontender Auscultation: normal bowel sounds Skin General skin exam: no rashes or lesions noted Neuro General: patient oriented x3, gait normal, moves all extremities and no focal motor deficits Extrem General: Yes normal to inspection, Yes full ROM, Yes no joint enlargement, Yes no clubbing, cyanosis or edema and Yes normal gait Coding Level of Care Code Est Pt Level 4 (54904) Diagnoses Rash and nonspecific skin eruption R21 Upper respiratory symptom R09.89 Dyslipidemia E78.5 Additional Codes ARY-7 Assessment Billing - ARY-7 Assessment Tool: ARY-7 Assessment 68958 ([id number]) PHQ-9 - 22427 - PHQ-9 Billing: Yes ([id number]) Assessment & Plan Assessment & Plan (1) Rash and nonspecific skin eruption: Code(s): R21 - Rash and other nonspecific skin eruption Category: Medical (2) Upper respiratory symptom: Code(s): R09.89 - Other specified symptoms and signs involving the circulatory and respiratory systems (3) Dyslipidemia: Code(s): E78.5 - Hyperlipidemia, unspecified Category: Medical Plan Patient was informed and verbally consented to the use of an ambient scribe for clinic note documentation during this visit recommended to continue using Stefani and consider switching to Xyzal at night if sleep disturbances occur. Cold compresses are suggested to alleviate symptoms. Test done to check for RSV, flu, COVID-19 . Supportive measures at present time Will repeat another fasting lipid panel, together with CBC with differential count, liver enzymes. Advised adherence to healthy eating habits, low-cholesterol diet and getting regular exercise help improve lipid levels Orders: Orders Complete Blood Count Auto Diff 02/15/25 R21 - Rash and other nonspecific skin eruption, R09.89 - Other specified symptoms and signs involving the circulatory and respiratory systems, E78.5 - Hyperlipidemia, unspecified Aspartate Amino Transferase 02/15/25 R21 - Rash and other nonspecific skin eruption, R09.89 - Other specified symptoms and signs involving the circulatory and respiratory systems, E78.5 - Hyperlipidemia, unspecified Alanine Aminotransferase 02/15/25 R21 - Rash and other nonspecific skin eruption, R09.89 - Other specified symptoms and signs involving the circulatory and respiratory systems, E78.5 - Hyperlipidemia, unspecified SARS-CoV2/FLU/RSV 02/14/25 R21 - Rash and other nonspecific skin eruption, R09.89 - Other specified symptoms and signs involving the circulatory and respiratory systems, E78.5 - Hyperlipidemia, unspecified Lipid Panel 02/15/25 R21 - Rash and other nonspecific skin eruption, R09.89 - Other specified symptoms and signs involving the circulatory and respiratory systems, E78.5 - Hyperlipidemia, unspecified
[2025-02-14 13:39] VITALS: BP 94/58; PULSE 74; RESP 16; TEMP 36.9; O2SAT 98; BMI 30.4
--- OUTSIDE RECORDS SUMMARY | 2025-02-14 14:43 | XMS_ITS | Clinical Summary ---
Author Organization [facility] Address [address] [place] [id number] Phone Care Team Providers Care Attending Radiologist Name Role Phone Alex Key MD Primary Care Provider [phone] Immunizations Immunization Administration Dates Next Due COVID-19 [...] (18-6 5 YEARS) 2004 PAP SMEAR 2007 INFLUENZA VACCINE (#1) 2025 COVID-19 VACCINE (2024-2 6 season) 2025 08/07/2020, 07/10/2020 HEPATITIS A VACCINES Aged Out [...] topic Medical Devices Not on file Insurance [facility] NET PARTIAL HMO [facility] NET PARTIAL Member Subscriber Plan / Payer (Ef fective 2020-Present) Name:Christen Sanderson Relation to Subscriber:Self Name:Rodolfo [place] Payer ID:Not on file Group ID:Not on file Type:Medicaid Address: [address] [employer] NET PARTIAL Member Subscriber Plan / Payer (Ef fective 2020-Present) Name:Christen Sanderson Relation to Subscriber:Self Name:Christen Sanderson Payer ID:Not on file Group ID:Not on file Type:Medicaid Address: [address] [facility] S[facility] NET PARTIAL Member Subscriber Plan / Payer (Ef fective 2020-Present) Name:Christen Sanderson Relation to Subscriber:Self Name:LibertymariluzRodolfo sunjackiestu Payer ID:Not on file Group ID:Not on file Type:Medicaid Address: [address] [employer] SAFETY NET PARTIAL Member Subscriber Plan / Payer (Ef fective 2020-Present) Name:Christen Sanderson Relation to Subscriber:Self Name:Kin Rodolfovale Payer ID:Not on file Group ID:Not on file Type:Medicaid Address: [address] HMO [facility] SAFETY NET PARTIAL Member Subscriber Plan / Payer (Ef fective 2020-Present) Name:Christen Sanderson Relation to Subscriber:Self Name:Kin Rodolfojackiestu Payer ID:Not on file Group ID:Not on file Type:Medicaid Address: [address] HMO [facility] SAFETY NET PARTIAL Member Subscriber Plan / Payer (Ef fective 2020-Present) Name:Kin Rodolfovale Relation to Subscriber:Self Name:Kin Rodolfojackiestu Payer ID:Not on file Group ID:Not on file Type:Medicaid Address: [address] HMO [facility] SAFETY NET PARTIAL Member Subscriber Plan / Payer (Ef fective 2020-Present) Name:Christen Sanderson Relation to Subscriber:Self Name:Christen Sanderson Payer ID:Not on file Group ID:Not on file Type:Medicaid Address: [address] HMO [facility] NET PARTIAL Member Subscriber Plan / Payer (Ef fective 2020-Present) Name:Christen Sanderson Relation to Subscriber:Self Name:Christen Sanderson Payer ID:Not on file Group ID:Not on file Type:Medicaid Address: [address] HMO Care Teams Attending Radiologist Relationship Specialty Start Date End Date Alex Key MD [address] [place] [phone] [email or web address] PCP - General Otolaryngology 04/15/20 Additional Source Comments The information contained in this document represents components of the legal health record. It is not the complete legal health record.[facility]
== END 2025-02-14 14:27 | disposition home or self-care (01) ==
LOC: HO.HMCC 13:26
PROVIDERS: PCP Internal Medicine; Visit Provider Internal Medicine
DX: R21 Rash and other nonspecific skin eruption (principal); R09.89 Other specified symptoms and signs involving the circulatory and respiratory systems; E78.5 Hyperlipidemia, unspecified

== ENCOUNTER → 2025-02-14 13:25 | Outpatient (BNVA) | payer OTHER, SELFPAY | PROVIDERS: PCP Internal Medicine; Visit Provider Internal Medicine | DX: R21 Rash and other nonspecific skin eruption (principal); E78.5 Hyperlipidemia, unspecified; E03.9 Hypothyroidism, unspecified; F41.9 Anxiety disorder, unspecified; R09.89 Other specified symptoms and signs involving the circulatory and respiratory systems | CPT/HCPCS: 96127 ==

== ENCOUNTER 2025-02-15 07:51 | Outpatient (REF) | payer OTHER, SELFPAY ==
--- OUTSIDE RECORDS SUMMARY | 2025-02-15 07:54 | XMS_ITS | Clinical Summary ---
Author Organization [facility] Address [address] [place] [phone] Phone Care Team Providers Care Admissions Director Name Role Phone Alex Key MD Primary [...] topic Medical Devices Not on file Insurance [facility] NET PARTIAL HMO [facility] NET PARTIAL Member Subscriber Plan / Payer (Ef fective 2020-Present) Name:Christen Sanderson Relation to Subscriber:Self Name:Rodolfo Sandersonv[place] Payer ID:Not on file Group ID:Not on file Type:Medicaid Address: [address] [employer]MO [employer] SAFETY NET PARTIAL Member Subscriber Plan / Payer (Ef fective 2020-Present) Name:Christen Sanderson Relation to Subscriber:Self Name:Christen Sanderson Payer ID:Not on file Group ID:Not on file Type:Medicaid Address: [address] [facility] NET PARTIAL Member Subscriber Plan / Payer (Ef fective 2020-Present) Name:Christen Sanderson Relation to Subscriber:Self Name:LibertymariluzRodolfo sunjackiestu Payer ID:Not on file Group ID:Not on file Type:Medicaid Address: [address] [employer] SAF[employer] NET PARTIAL Member Subscriber Plan / Payer (Ef fective 2020-Present) Name:Christen Sanderson Relation to Subscriber:Self Name:Kin Rodolfovale Payer ID:Not on file Group ID:Not on file Type:Medicaid Address: [address] HMO [facility] NET PARTIAL Member Subscriber Plan / Payer (Ef fective 2020-Present) Name:Christen Sanderson Relation to Subscriber:Self Name:Kin Rodolfojackiestu Payer ID:Not on file Group ID:Not on file Type:Medicaid Address: [address] HMO [facility] NET PARTIAL Member Subscriber Plan / Payer (Ef fective 2020-Present) Name:Kin Rodolfovale Relation to Subscriber:Self Name:Kin Rodolfojackiestu Payer ID:Not on file Group ID:Not on file Type:Medicaid Address: [address] HMO [facility] NET PARTIAL Member Subscriber Plan / Payer (Ef fective 2020-Present) Name:Christen Sanderson Relation to Subscriber:Self Name:Christen Sanderson Payer ID:Not on file Group ID:Not on file Type:Medicaid Address: [address] HMO [facility] NET PARTIAL Member Subscriber Plan / Payer (Ef fective 2020-Present) Name:Christen Sanderson Relation to Subscriber:Self Name:Christen Sanderson Payer ID:Not on file Group ID:Not on file Type:Medicaid Address: [address] HMO Care Teams Admissions Director Relationship Specialty Start Date End Date Alex Key MD [address] [place] [phone] [email or web address] PCP - General Otolaryngology 04/15/20 Additional Source Comments The information contained in this document represents components of the legal health record. It is not the complete legal health record.[facility]
[2025-02-15 10:34] LABS: MANUAL DIFF FLAG NO
[2025-02-15 10:51] LABS: Hematocrit 40.7 % (37.0-47.0); Hemoglobin 13.7 g/dl (12.0-16.0); Imm Gran Abs Auto 0.00 X10*3/uL (0.00-0.03); Imm Gran Pct Auto 0.0 % (0.0-0.4); Lymphocytes Absolute Auto 1.4 X10*3/uL (1.2-4.9); Mean Corpuscular HGB Conc 33.7 g/dl (31.0-35.0); Mean Corpuscular Hemoglobin 30.2 pg (27.0-33.0); Mean Corpuscular Volume 89.6 fL (80.0-98.0); NRBC Abs Auto 0.000 X10*3/uL (0.0-0.012); NRBC Pct Auto 0.0 /100WBC (0.0-0.2); Platelet Count 197 X10*3/uL (160-400); Red Blood Count 4.54 X10*6/uL (4.20-5.50); White Blood Count 3.5 X10*3/uL (4.8-10.8)
[2025-02-15 11:06] LABS: Alanine Aminotransferase 61 U/L (0-31); Aspartate Amino Transferase 54 U/L (5-31); Cholesterol 224 mg/dL (<200); HDL Cholesterol 75 mg/dL (>40); Triglycerides 88 mg/dL (<150)
== END 2025-02-15 07:52 | disposition home or self-care (01) ==
LOC: HO.HMGCLDS 07:51
PROVIDERS: PCP Internal Medicine; Visit Provider Internal Medicine
DX: R21 Rash and other nonspecific skin eruption (principal); R09.89 Other specified symptoms and signs involving the circulatory and respiratory systems; E78.5 Hyperlipidemia, unspecified
CPT/HCPCS: 36415; 80061; 84450; 84460; 85025

== ENCOUNTER 2025-03-07 14:25 | Outpatient (AMB) | payer OTHER, SELFPAY ==
--- NOTE | 2025-03-07 14:39 | MHC.OFFVIS ---
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 She is presenting with disrupted sleep. She reports having conducted a Ghanaian urine test independently to assess her hormone levels, including melatonin and cortisol. The results indicated low melatonin, although the patient admits this was not under advice from a healthcare professional but rather for personal reasons. Sleep disruption remains the primary concern, characterized by the patient as disturbed but without further detail on frequency, severity, or potential triggers. Her past medical history includes Lyme disease, which previously presented with severe symptoms like body aches, fatigue, and a rash. These symptoms were notably distressing, but she has since been treated with doxycycline. However, no current Lyme disease-related symptoms were reported in the current visit. 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 Paternal Grandmother Diabetes mellitus Pituitary microadenoma Mental health disorder Paternal Aunt Mental health disorder Social History Housing: Apartment Alcohol intake: never Patient Tobacco Use Status: Never used Tobacco e-Cigarette/Vaping Use: Never Used Second Hand Smoke Exposure: No service: No Current occupational status: employed Cognitive needs: No Hearing needs: No Vision needs: No Review of Systems Const Details: - Neurological: Reports disrupted sleep. - Infectious Disease: Reports history of Lyme disease with previous symptoms of body aches, fatigue, and rash. - Endocrine: Reports low melatonin levels from a self-initiated hormone urine test. Physical Exam Neuro Other: Mental Status: Alert and oriented to person, place, and time. Normal attention. Normal spontaneous speech, fluency, and comprehension. No obvious issues with mood and memory. Affect is appropriate. Cranial Nerves: CN II: Visual jonas full to confrontation, visual acuity intact. CN III, IV, : Pupils equal, round, reactive to light and accommodation. Extraocular movements are normal. CN V: Facial sensation is normal. CN VII: Facial movements symmetrical. CN VIII: Hearing intact to bedside conversation is normal. CN IX, X: Palate elevates symmetrically. CN XI: Shoulder shrug and head turn symmetrical. CN XII: Tongue midline without atrophy or fasciculations. Motor: Bulk and tone normal in all extremities. No significant muscle weakness in arms and legs. No drift. Reflexes: Deep tendon reflexes 2+ and symmetric. Plantar response down-going bilaterally. Coordination: Xenhmh-ez-epjk and erqs-kv-gdqx testing normal. No dysmetria. Gait and Station: No obvious gait abnormality. No ataxia or instability. Sensory: Intact to light touch, pinprick, and vibration. Romberg is negative. Extrapyramidal: Full facial expressions and blinking. No rigidity. Movements are appropriate with no tremor or abnormality. Speech: Normal; no dysarthria or tremor. Assessment & Plan Assessment & Plan (1) Pituitary adenoma: Comment: [place] [facility] [place]: Prominent pituitary MRI brain [facility] [facility] [place] November 2021: 4mm adenoma, smaller than last year MRI brain [facility] [facility] [place] November 2020: 8 x 10 mm stable adenoma MRI brain WWO at in Aug 2016: pituitary adenoma 0.8 x 0.7 x 0.5 MRI brain [facility] at [facility] [place] May 2018: heterogenous enhancing pituitary but no obvious adenoma. Code(s): D35.2 - Benign neoplasm of pituitary gland Category: Medical (2) Anxiety: Code(s): F41.9 - Anxiety disorder, unspecified Category: Medical Plan Impression and recommendations: a: Non secreting pituitary lesion, stable on MRI b: Anxiety, controlled with sertraline Medications: New sertraline 50 mg PO QAM 90 tabs 3RF Coding Level of Care Code Est Pt Level 4 (88429) Diagnoses Pituitary adenoma D35.2 Anxiety F41.9
--- OUTSIDE RECORDS SUMMARY | 2025-03-07 18:47 | XMS_ITS | Clinical Summary ---
Author Organization [facility] Address [address] [place] [phone] Phone Care Team Providers Care Content Producer Name Role Phone Alex Key MD Primary [...] topic Medical Devices Not on file Insurance [facility] NET PARTIAL HMO [facility] NET PARTIAL Member Subscriber Plan / Payer (Ef fective 2020-Present) Name:Christen Sanderson Relation to Subscriber:Self Name:Rodolfo Sandersonvale Payer ID:Not on file Group ID:Not on file Type:Medicaid Address: [address] [employer] NET PARTIAL Member Subscriber Plan / Payer (Ef fective 2020-Present) Name:Christen Sanderson Relation to Subscriber:Self Name:Christen Sanderson Payer ID:Not on file Group ID:Not on file Type:Medicaid Address: [address] [facility] SAFETY NET PARTIAL Member Subscriber Plan / Payer (Ef fective 2020-Present) Name:Christen Sanderson Relation to Subscriber:Self Name:LibertymairluzRodolfo sunjackiestu Payer ID:Not on file Group ID:Not on file Type:Medicaid Address: [address] [employer] SAF[employer] NET PARTIAL Member Subscriber Plan / Payer (Ef fective 2020-Present) Name:Christen Sanderson Relation to Subscriber:Self Name:Kin Rodolfovale Payer ID:Not on file Group ID:Not on file Type:Medicaid Address: [address] HMO [facility] SAF[employer] NET PARTIAL Member Subscriber Plan / Payer (Ef fective 2020-Present) Name:Christen Sanderson Relation to Subscriber:Self Name:Kin Rodolfojackiestu Payer ID:Not on file Group ID:Not on file Type:Medicaid Address: [address] HMO [facility] SAF[employer] NET PARTIAL Member Subscriber Plan / Payer (Ef fective 2020-Present) Name:Kin Rodolfovale Relation to Subscriber:Self Name:Kin Rodolfojackiestu Payer ID:Not on file Group ID:Not on file Type:Medicaid Address: [address] HMO [facility] [employer]AF[employer] NET PARTIAL Member Subscriber Plan / Payer (Ef fective 2020-Present) Name:Christen Sanderson Relation to Subscriber:Self Name:Christen Sanderson Payer ID:Not on file Group ID:Not on file Type:Medicaid Address: [address] HMO [facility] NET PARTIAL Member Subscriber Plan / Payer (Ef fective 2020-Present) Name:Christen Sanderson Relation to Subscriber:Self Name:Christen Sanderson Payer ID:Not on file Group ID:Not on file Type:Medicaid Address: [address] HMO Care Teams Content Producer Relationship Specialty Start Date End Date Alex Key MD [address] [place] [phone] [email or web address] PCP - General Otolaryngology 04/15/20 Additional Source Comments The information contained in this document represents components of the legal health record. It is not the complete legal health record.[facility]
== END 2025-03-07 17:05 | disposition home or self-care (01) ==
LOC: HO.HSM 14:26
PROVIDERS: PCP Internal Medicine; Visit Provider Psychiatry & Neurology Neurology
DX: D35.2 Benign neoplasm of pituitary gland (principal); F41.9 Anxiety disorder, unspecified
CPT/HCPCS: 99214

== ENCOUNTER 2025-04-18 14:12 | Outpatient (AMB) | payer OTHER, SELFPAY ==
--- NOTE | 2025-04-18 14:51 | MHC.PC.OV ---
Vital Signs 04/18/25 14:54 Height 5 ft 8 in Weight 195 lb BMI 29.6 BP 90/60 Blood Pressure Location Lt brachial Position Sitting Respiration 16 Pulse 72 Pulse Source Pulse Oximeter Temp 97.8 F Temp Source Oral Pulse Oximetry (%) 99 Oxygen Delivery Method Room Air Intake Visit Reasons: Annual - see comments Intake Note: Pt is here today for her PE: Form Block Maker Required: No Is last menstrual period known: Yes Last menstrual period: 03/27/25 Allergies No Known Allergies (No Known Allergies*) Allergy (Verified 04/18/25 15:04) Dust and Mold Allergy (Unknown, Uncoded 04/18/25 15:04) Unknown Medication List - Last Reconciled 04/18/25 by Pat Sevilla MD levothyroxine 50 mcg PO DAILY 90 days sertraline 50 mg PO QAM Tobacco use date assessed: 04/18/25 Dental Screening Dental Screen Date: 04/18/25 Did you have a dental visit in the last 12 months?: Yes Did you have a dental problem in the last 6 months where you did not have access to dental care?: No Was dental information given to patient?: Patient has dentist HPI Annual - see comments HPI Details 40-year-old female presenting for review of laboratory results and a physical exam. Recent bloodwork from February showed that her liver enzymes had almost tripled compared to the previous year, though her cholesterol had improved. The patient has not started any new medications. The elevation may be associated with a recent COVID-19 infection in early February or a Lyme disease infection in November. The patient was diagnosed with Lyme disease in November after experiencing flu-like symptoms including fever, chills, aching, and a full-body, non-pruritic rash following yard work. She did not recall a tick bite or a bull's-eye rash. There was a one-month delay in diagnosis, during which she was treated with prednisone and Tylenol. Following the diagnosis, she completed a 20-day course of doxycycline, which she tolerated well. She continues to experience residual fatigue and arthralgia, particularly in her knees. The patient has a history of Gissell's thyroiditis, which may be contributing to a fluctuating white blood cell count. 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 She reports a mobile mass in her right breast at the 10 o'clock position, which can be sore and cause a sensation of arm heaviness and wrist tightness. This is being monitored with mammograms and ultrasounds, with the next screening scheduled for August. For preventative care, the patient recently had a Pap smear with reportedly benign results, but the report has not yet been received. She declined a flu shot and has not had a recent tetanus shot. She does not smoke or drink alcohol. 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 Paternal Grandmother Diabetes mellitus Pituitary microadenoma Mental health disorder Paternal Aunt Mental health disorder Social History Housing: Apartment Alcohol intake: never Patient Tobacco Use Status: Never used Tobacco e-Cigarette/Vaping Use: Never Used Second Hand Smoke Exposure: No service: No Current occupational status: employed Cognitive needs: No Hearing needs: No Vision needs: No Female Reproductive History Menstrual Date of last menstrual period: 03/27/25 Questionnaire PHQ-9 Over the last 2 weeks, how often have you been bothered by any of the following problems? 1. Little interest or pleasure in doing things: not at all 2. Feeling down, depressed, or hopeless: not at all 3. Trouble falling or staying asleep, or sleeping too much: not at all 4. Feeling tired or having little energy: not at all 5. Poor appetite or overeating: not at all 6. Feeling bad about yourself - or that you are a failure or have let yourself or your family down: not at all 7. Trouble concentrating on things, such as reading the newspaper or watching television: not at all 8. Moving or speaking so slowly that other people could have noticed. Or the opposite - being so fidgety or restless that you have been moving around a lot more than usual: not at all 9. Thoughts that you would be better off or of hurting yourself in some way: not at all Total score: 0 Depression Screening Interpretation: Negative Depression Screening Done: Yes Source: Developed by Drs. Kike Gannon, Cecilia Ronquillo, Christian House and colleagues, with an educational yakelin from [employer]. Thrive Questionnaire Date Thrive assessed: 02/07/25 I am a: Patient What is your living situation today?: I have a steady place to live Within the past 12 months, did the food you bought not last and you didn't have the money to get more?: Never true Within the past 12 months, did you worry whether your food would run out before you got money to buy more?: Never true Do you have trouble paying for medicines?: No Do you have trouble getting transportation to medical appointments?: No Do you have trouble paying your heating and electricity bill?: No Do you have trouble taking care of your child, family member or friend?: No Do you have trouble with day-to-day activities such as bathing, preparing meals, shopping, managing finances, etc.?: No Are you currently unemployed and looking for a job?: No Are you interested in more education?: No Please select the resources that you would like help with: None Currently or been in a relationship where the following occur: I choose not to answer THRIVE Score: 0 AUDIT C Alcohol Use Questionnaire (AUDIT-C) 1. How often do you have a drink containing alcohol?: Never 3. How often do you have six or more drinks on one occasion?: Never Total Score: 0 ARY-7 AMB Questionnaire ARY-7 Date ARY - 7 assessed: 02/14/25 Feeling nervous, anxious, or on edge: 0 = Not at all Not being able to stop or control worryin = Not at all Worrying too much about different things: 0 = Not at all Trouble relaxin = Not at all Being so restless that it is hard to sit still: 0 = Not at all Becoming easily annoyed or irritable: 0 = Not at all Feeling afraid as if something awful might happen: 0 = Not at all Total ARY-7 score (0-4 normal; 5-9 mild; 10-14 moderate; 15-21 severe): 0 Source: Developed by Drs. Kike Gannon, Cecilia Ronquillo, Christian House and colleagues, with an educational yakelin from [employer]. Review of Systems Const All systems reviewed & are unremarkable except as noted in HPI and below Details: Had a Pap smear done at [facility] in [place], which she states came back with benign findings Skin/Breast Details: Right breast mass which is currently being followed by mammogram and ultrasound every six-months Physical exam (Primary Care) Vital Signs: Last Vital Signs Temp 97.8 F 04/18/25 14:54 Pulse 72 04/18/25 14:54 Resp 16 04/18/25 14:54 BP 90/60 04/18/25 14:54 Pulse Ox 99 04/18/25 14:54 Oxygen Delivery Method Room Air 04/18/25 14:54 BMI result Body Mass Index 29.6 Tobacco/Smoking Status: Tobacco use Status Tobacco use date assessed 04/18/25 04/18/25 14:53 Patient Tobacco Use Status Never used Tobacco 04/18/25 14:53 e-Cigarette/Vaping Use Never Used 04/18/25 14:53 PHQ-9: PHQ-9 Score PHQ-9: Total score 0 04/18/25 15:05 Depression Screening Interpretation: Negative Thrive Assessment: Date of Thrive Assessment Date Thrive assessed 02/07/25 04/18/25 14:53 Currently or been in a relationship where the following occur: I choose not to answer Const Orientation/consciousness: patient oriented x3 HENMT Ears: external ears normal General nose exam: Normal external nose present Face and sinus: Yes face symmetric Mouth: Normal oral and palatal mucosa present and moist mucous membranes Eyes General: appearance normal, both eyes and all related structures Neck Neck: Yes full ROM, Yes no lymphadenopathy and Yes supple Chest Other: Firm mobile nodular mass palpated on upper outer quadrant right breast Resp Auscultation: clear to auscultation bilaterally Cardio Rate: regular rate Rhythm: regular rhythm Heart sounds: S1 normal heart sound present and S2 normal heart sound present GI Palpation (GI): Soft to palpation and nontender Auscultation: normal bowel sounds General: Yes no CVA tenderness Back/Spine/Pelvis Back: no CVA tenderness and No back tenderness Skin General skin exam: no rashes or lesions noted Neuro General: patient oriented x3, gait normal, moves all extremities and no focal motor deficits Extrem General: Yes normal to inspection, Yes full ROM, Yes no joint enlargement, Yes no clubbing, cyanosis or edema and Yes normal gait Psych Appearance: grossly normal and well kempt Mental Status: mental status grossly normal Speech and movement: Normal speech and movement present Affect: normal affect Results Reviewed Results Reviewed: warren: Christen Sanderson Age/Sex: 39/F : 1985 Unit#: [id number] Attend Dr: Pat Sevilla MD Re02/15/25 Status: DEP REF Location: [facility] Disch: SPEC : [id number] BRANDAN: 02/15/25 STATUS: COMP REQ : [id number] RECD: 02/15/251028 SUBM DR: Pat Sevilla MD COMP: 02/15/25 ENTERED: 02/15/[address]: ORDERED: CBC Auto Diff Test Result Flag Reference WBC 3.5 L 4.8-10.8 X10*3/uL RBC 4.54 4.20-5.50 X10*6/uL HGB 13.7 12.0-16.0 g/dl HCT 40.7 37.0-47.0 % MCV 89.6 80.0-98.0 fL MCH 30.2 27.0-33.0 pg MCHC 33.7 31.0-35.0 g/dl RDW 13.6 11.0-16.0 % PLT 197 160-400 X10*3/uL MPV 10.9 9.4-12.3 fL Neut Pct Auto 44.6 L 45-73 % ImGran Pct Auto 0.0 0.0-0.4 % Lymp Pct Auto 40.2 H 20-40 % [place] Pct Auto 10.6 2-11 % Eos Pct Auto 3.7 0-4 % Baso Pct Auto 0.9 0-2 % NRBC Pct Auto 0.0 0.0-0.2 /100WBC ANC Neut Abs # 1.6 L 2.0-8.3 x10*3/uL ImGran Abs Auto 0.00 0.00-0.03 X10*3/uL Lymph Abs Auto 1.4 1.2-4.9 X10*3/uL [place] Abs Auto 0.4 0.1-1.2 X10*3/uL Eos Abs Auto 0.1 0.0-0.4 X10*3/uL Baso Abs Auto 0.0 0.0-0.2 X10*3/uL NRBC Abs Auto 0.000 0.0-0.012 X10*3/uL Name: Christen Sanderson Age/Sex: 39/F : 1985 Unit#: [id number] Attend Dr: Pat Sevilla MD Re02/15/25 Status: DEP REF Location: [facility] Disch: SPEC : [id number] BRANDAN: 02/15/25 STATUS: COMP REQ : [id number] RECD: 02/15/25-[address]: Pat Sevilla MD COMP: 02/15/25-6 ENTERED: 02/15/[address]: ORDERED: AST, ALT, Lipid Panel Test Result Flag Reference AST (GOT) 54 H 5-31 U/L ALT (GPT) 61 H 0-31 U/L Triglyceride 88 <150 mg/dL Desirable Triglyceride: less than 150 mg/dL Borderline High Triglyceride 150-199 mg/dL High Triglyceride: 200-499 mg/dL Very High Triglyceride: greater than or equal to 5OO mg/dL Cholesterol 224 H <200 mg/dL Desirable Cholesterol: less than 200 mg/dL Borderline High Cholesterol: 200-239 mg/dL High Cholesterol: greater than 239 mg/dL LDL Calculated 132 H <100 mg/dL Desirable LDL: less than 100 mg/dL Near Optimal/Above Optimal LDL: 110-129 mg/dL Borderline High LDL: 130-159 mg/dL High LDL: 160-189 mg/dL Very High LDL: greater than or equal to 190 mg/dL HDL 75 >40 mg/dL Desirable HDL: greater than 40 mg/dL Note: This HDL assay may give artificially low results in patients with liver disease. 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 Requested latest cervical cancer screening report from OBGYN Immunizations: Patient declined the flu shot. Advised on getting any tetanus booster . She right breast in her right breast, currently being followed and monitored, with a follow-up mammogram and ultrasound scheduled for August. The plan is to continue observation and refer to surgery if any change seen (2) Anxiety disorder: Code(s): F41.9 - Anxiety disorder, unspecified Category: Medical Qualifiers: Anxiety disorder type: generalized anxiety disorder Qualified Code(s): F41.1 - Generalized anxiety disorder Plan: Currently on sertraline 50 mg taken once a day (3) Dyslipidemia: Code(s): E78.5 - Hyperlipidemia, unspecified Category: Medical Plan: Latest fasting lipids showed improvement in her LDL cholesterol. Seen with the adherence to healthy eating habits and regular exercise. 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 Will recheck thyroid studies along with other labs in May. Orders: Orders Thyroid Peroxidase Antibodies 04/23/25 R74.8 - Abnormal levels of other serum enzymes, E06.3 - Autoimmune thyroiditis Comprehensive [place]. Panel Fast 04/23/25 R74.8 - Abnormal levels of other serum enzymes, E06.3 - Autoimmune thyroiditis Lipid Panel 04/23/25 R74.8 - Abnormal levels of other serum enzymes, E06.3 - Autoimmune thyroiditis Thyroid Stimulating Hormone 04/23/25 R74.8 - Abnormal levels of other serum enzymes, E06.3 - Autoimmune thyroiditis Free T4 (Free Thyroxine) 04/23/25 R74.8 - Abnormal levels of other serum enzymes, E06.3 - Autoimmune thyroiditis
[2025-04-18 14:54] VITALS: BP 90/60; PULSE 72; RESP 16; TEMP 36.6; O2SAT 99; BMI 29.6
--- OUTSIDE RECORDS SUMMARY | 2025-04-18 17:23 | XMS_ITS | Clinical Summary ---
Author Organization [facility] Address [address] [place] [phone] Phone Care Team Providers Care Welder Plastic Name Role Phone Alex Key MD Primary [...] topic Medical Devices Not on file Insurance [facility] NET PARTIAL HMO [facility] NET PARTIAL Member Subscriber Plan / Payer (Ef fective 2020-Present) Name:Christen Sanderson Relation to Subscriber:Self Name:Rodolfo Sandersonvale Payer ID:Not on file Group ID:Not on file Type:Medicaid Address: [address] [employer]AF[employer] NET PARTIAL Member Subscriber Plan / Payer (Ef fective 2020-Present) Name:Christen Sanderson Relation to Subscriber:Self Name:Christen Sanderson Payer ID:Not on file Group ID:Not on file Type:Medicaid Address: [address] [facility] S[facility] NET PARTIAL Member Subscriber Plan / Payer (Ef fective 2020-Present) Name:Christen Sanderson Relation to Subscriber:Self Name:LibertymariluzRodolfo sunjackiestu Payer ID:Not on file Group ID:Not on file Type:Medicaid Address: [address] [employer]AF[employer] NET PARTIAL Member Subscriber Plan / Payer (Ef fective 2020-Present) Name:Christen Sanderson Relation to Subscriber:Self Name:Kin Rodolfovale Payer ID:Not on file Group ID:Not on file Type:Medicaid Address: [address] HMO [facility] SAFETY NET PARTIAL Member Subscriber Plan / Payer (Ef fective 2020-Present) Name:Christen Sanderson Relation to Subscriber:Self Name:Kin Rodolfojackiestu Payer ID:Not on file Group ID:Not on file Type:Medicaid Address: [address] HMO [facility] SAFET[employer] NET PARTIAL Member Subscriber Plan / Payer (Ef fective 2020-Present) Name:Kin Rodolfovale Relation to Subscriber:Self Name:Kin Rodolfojackiestu Payer ID:Not on file Group ID:Not on file Type:Medicaid Address: [address] HMO [facility] SAFET[employer] NET PARTIAL Member Subscriber Plan / Payer (Ef fective 2020-Present) Name:Christen Sanderson Relation to Subscriber:Self Name:Christen Sanderson Payer ID:Not on file Group ID:Not on file Type:Medicaid Address: [address] HMO [facility] Address: [address] [address] [facility] NET PARTIAL Member Subscriber Plan / Payer (Ef fective 2020-Present) Name:Christen Sanderson Relation to Subscriber:Self Name:Christen Sanderson Payer ID:Not on file Group ID:Not on file Type:Medicaid Address: [address] HMO [facility] Address: [address] [address] Care Teams Welder Plastic Relationship Specialty Start Date End Date Alex Key MD [address] [place] [phone] [email or web address] PCP - General Otolaryngology 04/15/20 Additional Source Comments The information contained in this document represents components of the legal health record. It is not the complete legal health record.[facility]
== END 2025-04-18 15:24 | disposition home or self-care (01) ==
LOC: HO.HMCC 14:12
PROVIDERS: PCP Internal Medicine; Visit Provider Internal Medicine
DX: Z00.01 Encounter for general adult medical examination with abnormal findings (principal); F41.1 Generalized anxiety disorder; E78.5 Hyperlipidemia, unspecified; E06.3 Autoimmune thyroiditis

== ENCOUNTER 2025-04-23 07:37 | Outpatient (REF) | payer OTHER, SELFPAY ==
--- OUTSIDE RECORDS SUMMARY | 2025-04-23 07:41 | XMS_ITS | Clinical Summary ---
Author Organization [facility] Address [address] [place] [phone] Phone Care Team Providers Care Rand Cementer Name Role Phone Alex Key MD Primary [...] topic Medical Devices Not on file Insurance [facility] NET PARTIAL HMO [facility] NET PARTIAL Member Subscriber Plan / Payer (Ef fective 2020-Present) Name:Christen Sanderson Relation to Subscriber:Self Name:Rodolfo Sandersonvale Payer ID:Not on file Group ID:Not on file Type:Medicaid Address: [address] [employer]AF[employer] NET PARTIAL Member Subscriber Plan / Payer (Ef fective 2020-Present) Name:Christen Sanderson Relation to Subscriber:Self Name:Christen Sanderson Payer ID:Not on file Group ID:Not on file Type:Medicaid Address: [address] [facility] SAF[facility] NET PARTIAL Member Subscriber Plan / Payer (Ef fective 2020-Present) Name:Christen Sanderson Relation to Subscriber:Self Name:LibertymariluzRodolfo sunjackiestu Payer ID:Not on file Group ID:Not on file Type:Medicaid Address: [address] [employer]AF[employer] NET PARTIAL Member Subscriber Plan / Payer (Ef fective 2020-Present) Name:Christen Sanderson Relation to Subscriber:Self Name:Kin Rodolfovale Payer ID:Not on file Group ID:Not on file Type:Medicaid Address: [address] [facility] SAF[employer] NET PARTIAL Member Subscriber Plan / Payer (Ef fective 2020-Present) Name:Christen Sanderson Relation to Subscriber:Self Name:Kin Rodolfojackiestu Payer ID:Not on file Group ID:Not on file Type:Medicaid Address: [address] [facility] S[facility] NET PARTIAL Member Subscriber Plan / Payer (Ef fective 2020-Present) Name:Kin Rodolfovale Relation to Subscriber:Self Name:Kin Rodolfojackiestu Payer ID:Not on file Group ID:Not on file Type:Medicaid Address: [address] [facility] [employer] NET PARTIAL Member Subscriber Plan / Payer (Ef fective 2020-Present) Name:Christen Sanderson Relation to Subscriber:Self Name:Christen Sanderson Payer ID:Not on file Group ID:Not on file Type:Medicaid Address: [address] HMO [facility] NET PARTIAL Member Subscriber Plan / Payer (Ef fective 2020-Present) Name:Christen Sanderson Relation to Subscriber:Self Name:Christen Sanderson Payer ID:Not on file Group ID:Not on file Type:Medicaid Address: [address] HMO Care Teams Rand Cementer Relationship Specialty Start Date End Date Alex Key MD [address] [place] [phone] [email or web address] PCP - General Otolaryngology 04/15/20 Additional Source Comments The information contained in this document represents components of the legal health record. It is not the complete legal health record.[facility]
[2025-04-23 11:04] LABS: Alanine Aminotransferase 14 U/L (0-31); Albumin Level 4.3 g/dL (3.5-5.0); Alkaline Phosphatase 41 U/L (39-117); Anion Gap 11 (12-20); Aspartate Amino Transferase 20 U/L (5-31); Blood Urea Nitrogen 15 mg/dL (9-16); Calcium 8.9 mg/dL (8.4-10.2); Carbon Dioxide 23 mmol/L (22-29); Chloride 109 mmol/L (96-108); Cholesterol 250 mg/dL (<200); Estimated Glomerular Filt Rate > 60; HDL Cholesterol 63 mg/dL (>40); Potassium 4.4 mmol/L (3.3-5.1); Sodium 139 mmol/L (135-145); Total Protein 6.5 g/dL (6.5-8.0); Triglycerides 55 mg/dL (<150)
[2025-04-23 11:30] LABS: Free T4 (Free Thyroxine) 0.88 ng/dL (0.71-1.85); Thyroid Stimulating Hormone 6.04 uIU/mL (0.32-4.0)
== END 2025-04-23 07:38 | disposition home or self-care (01) ==
LOC: HO.HMGCLDS 07:37
PROVIDERS: PCP Internal Medicine; Visit Provider Internal Medicine
DX: R74.8 Abnormal levels of other serum enzymes (principal); E06.3 Autoimmune thyroiditis
CPT/HCPCS: 36415; 80053; 80061; 84439; 84443; 86376